=== PATIENT | female | born 1950 | race African-American/Black ===

== ENCOUNTER 2017-07-27 13:28 | Inpatient (IN) ==
[2017-07-27 15:10] LABS: Basophils % 0.3 % (0.0-0.8); Eosinophils # 0.1 10*3/uL (0.0-0.87); Eosinophils % 1.4 % (0.00-10.9); Hematocrit 33.1 VOL% (35.7-47.0); Hemoglobin 11.1 GM/DL (12.0-16.0); Immature Granulocytes % 0.5 %; Immature Granulocytes Absolute 0.03 #; Lymphocytes # 0.4 10*3/uL (1.4-4.0); Lymphocytes % 6.6 % (21.3-54.2); Mean Corpuscular HGB Conc 33.5 GM/DL (32-36); Mean Corpuscular Hemoglobin 30 PG (27-34); Mean Corpuscular Volume 89.7 FL (87-102); Mean Platelet Volume 11.9 FL (9.6-12.0); Monocytes # 0.6 10*3/uL (0.11-0.8); Monocytes % 8.9 % (1.7-12.7); Neutrophils # 5.4 10*3/uL (1.4-7.4); Neutrophils % 82.3 % (38.7-73.9); Platelet Count 92 T/CUMM (130-400); Red Blood Count 3.69 MC/CUMM (3.8-5.5); Red Cell Distribution Width 13.7 % (9.3-17.3); White Blood Count 6.5 T/CUMM (4-12)
[2017-07-27 15:26] LABS: Calcium 8.5 MG/DL (8.5-10.1); Osmolality,Calculated 267.4 MOS/KG (273-304); Potassium 4.2 MMOL/L (3.5-5.1)
[2017-07-27 15:57] LABS: Anisocytosis 1+; Band Neutrophils 1 % (0-10); Eosinophils 1 % (0-10); Hypochromasia 1+; Lymphocytes 4 % (20-55); Myelocytes 1 %; Platelet Estimate Decreased; Segmented Neutrophils 87 % (50-85); Total Cells Counted 100
[2017-07-27] MEDS ORDERED: ONDANSETRON 4 MG/2 ML VIAL IV PRN (17:09)
[2017-07-27] MEDS ORDERED: ACETAMINOPHEN 325 MG TABLET PO PRN (17:09)
[2017-07-27] MEDS ORDERED: guaiFENesin/DM ER 600-30 MG TABLET PO PRN (17:09)
[2017-07-27] MEDS ORDERED: ZALEPLON 5 MG CAPSULE PO PRN (17:09)
[2017-07-27] MEDS ORDERED: GENTAMICIN INJ 100 ML IV ONE (18:00)
[2017-07-27] MEDS ORDERED: GENTAMICIN INJ 100 ML IV PRN (18:00)
[2017-07-27] MEDS ORDERED: VANCOMYCIN INJ 1,250 MG in SODIUM CHLORIDE 0.45% 250 ML IV ONE (18:00)
[2017-07-27] MEDS ORDERED: VANCOMYCIN INJ 1,250 MG in SODIUM CHLORIDE 0.45% 250 ML IV PRN (18:00)
[2017-07-27] MEDS: ENOXAPARIN 30 MG/0.3 ML SYRINGE SUBCUT SCH (18:35)
[2017-07-27] MEDS ORDERED: OSELTAMIVIR 75 MG CAPSULE PO SCH (21:00)
[2017-07-28 06:26] LABS: Basophils % 0.2 % (0.0-0.8); Eosinophils # 0.2 10*3/uL (0.0-0.87); Eosinophils % 4.4 % (0.00-10.9); Hematocrit 29.4 VOL% (35.7-47.0); Hemoglobin 9.8 GM/DL (12.0-16.0); Immature Granulocytes % 0.4 %; Immature Granulocytes Absolute 0.02 #; Lymphocytes # 0.6 10*3/uL (1.4-4.0); Lymphocytes % 10.4 % (21.3-54.2); Mean Corpuscular HGB Conc 33.3 GM/DL (32-36); Mean Corpuscular Hemoglobin 30 PG (27-34); Mean Corpuscular Volume 90.2 FL (87-102); Mean Platelet Volume 12.2 FL (9.6-12.0); Monocytes # 0.7 10*3/uL (0.11-0.8); Monocytes % 13.1 % (1.7-12.7); Neutrophils # 3.8 10*3/uL (1.4-7.4); Neutrophils % 71.5 % (38.7-73.9); Red Blood Count 3.26 MC/CUMM (3.8-5.5); Red Cell Distribution Width 13.8 % (9.3-17.3); White Blood Count 5.3 T/CUMM (4-12)
[2017-07-28 06:29] LABS: Platelet Count 90 T/CUMM (130-400)
[2017-07-28 06:57] LABS: Calcium 7.7 MG/DL (8.5-10.1); Potassium 3.9 MMOL/L (3.5-5.1)
[2017-07-28] MEDS: PANTOPRAZOLE 40 MG TABLET PO SCH (09:02)
[2017-07-28] MEDS: ENOXAPARIN 30 MG/0.3 ML SYRINGE SUBCUT SCH (17:57)
[2017-07-29] MEDS: PANTOPRAZOLE 40 MG TABLET PO SCH (08:37)
[2017-07-29 09:02] VITALS: BP 159/79
== END 2017-07-29 11:55 | disposition home or self-care (01) | DRG 871 ==
LOC: N.ED 13:28 → N.EDINP 15:17 → N.5E 17:09
PROVIDERS: ADMIT Internal Medicine; ATTEND Internal Medicine

== ENCOUNTER 2017-10-03 22:46 | Inpatient (IN) ==
[2017-10-03] MEDS ORDERED: ACETAMINOPHEN 500 MG TABLET ONE (23:15)
[2017-10-03] MEDS ORDERED: ACETAMINOPHEN 500 MG TABLET PO STA (23:19)
[2017-10-03] MEDS ORDERED: SODIUM CHLORIDE 0.9% 500 ML IV STA (23:32)
[2017-10-03] MEDS ORDERED: IBUPROFEN 800 MG TABLET PO STA (23:32)
[2017-10-04 00:46] LABS: Basophils # 0.1 10*3/uL (0.0-0.2); Basophils % 0.3 % (0.0-0.8); Eosinophils # 0.1 10*3/uL (0.0-0.87); Eosinophils % 0.6 % (0.00-10.9); Hematocrit 26.9 VOL% (35.7-47.0); Hemoglobin 8.5 GM/DL (12.0-16.0); Immature Granulocytes % 2.7 %; Immature Granulocytes Absolute 0.38 #; Lymphocytes # 0.7 10*3/uL (1.4-4.0); Mean Corpuscular HGB Conc 31.6 GM/DL (32-36); Mean Corpuscular Hemoglobin 28 PG (27-34); Mean Corpuscular Volume 87.1 FL (87-102); Mean Platelet Volume 12.5 FL (9.6-12.0); Monocytes # 0.9 10*3/uL (0.11-0.8); Neutrophils # 12.2 10*3/uL (1.4-7.4); Neutrophils % 85.4 % (38.7-73.9); Platelet Count 162 T/CUMM (130-400); Red Blood Count 3.09 MC/CUMM (3.8-5.5); Red Cell Distribution Width 15.1 % (9.3-17.3); White Blood Count 14.3 T/CUMM (4-12)
[2017-10-04 00:53] LABS: Calcium 9.5 MG/DL (8.5-10.1); Magnesium 1.9 MG/DL (1.8-2.4); Osmolality,Calculated 275.7 MOS/KG (273-304); Potassium 3.6 MMOL/L (3.5-5.1)
[2017-10-04] MEDS ORDERED: ACETAMINOPHEN 325 MG TABLET PO PRN (04:39)
[2017-10-04] MEDS ORDERED: MORPHINE 2 MG/1 ML SYRINGE IV PRN (04:39)
[2017-10-04] MEDS ORDERED: ALBUTEROL/IPRATROPIUM 3 ML NEB RESP TX PRN (04:39)
[2017-10-04] MEDS ORDERED: ONDANSETRON 4 MG/2 ML VIAL IV PRN (04:39)
[2017-10-04] MEDS ORDERED: LEVOFLOXACIN INJ 750 MG in PREMIX 1 EACH IV ONE (05:30)
[2017-10-04] MEDS: ALBUTEROL/IPRATROPIUM 3 ML NEB RESP TX SCH ×3 (06:59→20:22)
[2017-10-04] MEDS: DOCUSATE SODIUM 100 MG CAPSULE PO SCH ×2 (09:15→20:39)
[2017-10-04] MEDS: PANTOPRAZOLE 40 MG TABLET PO SCH (09:16)
[2017-10-04] MEDS: ENOXAPARIN 30 MG/0.3 ML SYRINGE SUBCUT SCH (09:16)
[2017-10-04] MEDS: cloNIDine 0.1 MG TABLET PO SCH ×2 (14:10→20:39)
[2017-10-05] MEDS: ALBUTEROL/IPRATROPIUM 3 ML NEB RESP TX SCH ×4 (01:12→19:47)
[2017-10-05 06:52] LABS: Basophils % 0.2 % (0.0-0.8); Eosinophils # 0.2 10*3/uL (0.0-0.87); Eosinophils % 2.1 % (0.00-10.9); Hematocrit 23.9 VOL% (35.7-47.0); Hemoglobin 7.4 GM/DL (12.0-16.0); Immature Granulocytes % 2.8 %; Immature Granulocytes Absolute 0.28 #; Lymphocytes # 0.8 10*3/uL (1.4-4.0); Lymphocytes % 8.3 % (21.3-54.2); Mean Corpuscular Hemoglobin 27 PG (27-34); Mean Corpuscular Volume 87.5 FL (87-102); Mean Platelet Volume 12.4 FL (9.6-12.0); Monocytes % 10.3 % (1.7-12.7); Neutrophils # 7.6 10*3/uL (1.4-7.4); Neutrophils % 76.3 % (38.7-73.9); Platelet Count 132 T/CUMM (130-400); Red Blood Count 2.73 MC/CUMM (3.8-5.5); Red Cell Distribution Width 15.2 % (9.3-17.3)
[2017-10-05 07:24] LABS: Albumin 2.3 G/DL (3.4-5.0); Bilirubin,Total 0.7 MG/DL (0.2-1.0); Calcium 8.1 MG/DL (8.5-10.1); Osmolality,Calculated 275.8 MOS/KG (273-304); Total Protein 5.7 G/DL (6.4-8.3)
[2017-10-05] MEDS: cloNIDine 0.1 MG TABLET PO SCH ×3 (08:36→21:55)
[2017-10-05] MEDS: DOCUSATE SODIUM 100 MG CAPSULE PO SCH ×2 (08:38→21:55)
[2017-10-05] MEDS: ENOXAPARIN 30 MG/0.3 ML SYRINGE SUBCUT SCH (08:38)
[2017-10-05] MEDS: PANTOPRAZOLE 40 MG TABLET PO SCH (08:38)
[2017-10-05] MEDS ORDERED: EPOETIN ALFA 10,000 UNIT/1 ML VIAL SUBCUT SCH (09:00)
[2017-10-06] MEDS: ALBUTEROL/IPRATROPIUM 3 ML NEB RESP TX SCH ×4 (00:21→20:15)
[2017-10-06] MEDS ORDERED: LEVOFLOXACIN INJ 500 MG in PREMIX 1 EACH IV SCH (05:30)
[2017-10-06] MEDS: ENOXAPARIN 30 MG/0.3 ML SYRINGE SUBCUT SCH (08:34)
[2017-10-06] MEDS: DOCUSATE SODIUM 100 MG CAPSULE PO SCH ×3 (08:34→21:29)
[2017-10-06] MEDS: PANTOPRAZOLE 40 MG TABLET PO SCH (08:34)
[2017-10-06] MEDS: cloNIDine 0.1 MG TABLET PO SCH ×4 (08:34→21:29)
[2017-10-06] MEDS ORDERED: SODIUM CHLORIDE 0.9% 1,000 ML IV PRN (12:59)
[2017-10-06] MEDS: CALCIUM ACETATE 667 MG CAPSULE PO SCH (16:07)
[2017-10-07] MEDS: ALBUTEROL/IPRATROPIUM 3 ML NEB RESP TX SCH ×2 (00:20→07:30)
[2017-10-07] MEDS: PANTOPRAZOLE 40 MG TABLET PO SCH (08:36)
[2017-10-07] MEDS: DOCUSATE SODIUM 100 MG CAPSULE PO SCH (08:36)
[2017-10-07] MEDS: cloNIDine 0.1 MG TABLET PO SCH (08:36)
[2017-10-07] MEDS: CALCIUM ACETATE 667 MG CAPSULE PO SCH ×2 (08:36→12:44)
[2017-10-07] MEDS: ENOXAPARIN 30 MG/0.3 ML SYRINGE SUBCUT SCH (08:36)
[2017-10-07 10:42] LABS: Hemoglobin 9.7 GM/DL (12.0-16.0)
[2017-10-07 12:01] VITALS: BP 161/95
== END 2017-10-07 13:51 | disposition home or self-care (01) | DRG 871 ==
LOC: N.ED 22:46 → N.EDINP 10-04 02:46 → N.5E 10-04 04:06
PROVIDERS: ADMIT Pediatrics; ATTEND Pediatrics

== ENCOUNTER 2017-10-26 15:11 | Inpatient (IN) ==
[2017-10-26] MEDS ORDERED: VANCOMYCIN INJ 1,000 MG in SODIUM CHLORIDE 0.9% 250 ML IV STA (15:36)
[2017-10-26] MEDS ORDERED: ACETAMINOPHEN 500 MG TABLET PO STA (15:36)
[2017-10-26] MEDS ORDERED: ACETAMINOPHEN 500 MG TABLET ONE (17:37)
[2017-10-26] MEDS ORDERED: VANCOMYCIN 1,000 MG VIAL ONE (17:37)
[2017-10-26 17:52] LABS: Basophils % 0.3 % (0.0-0.8); Eosinophils # 0.1 10*3/uL (0.0-0.87); Eosinophils % 0.5 % (0.00-10.9); Hematocrit 25.7 VOL% (35.7-47.0); Hemoglobin 8.1 GM/DL (12.0-16.0); Immature Granulocytes % 2.8 %; Immature Granulocytes Absolute 0.37 #; Lymphocytes # 0.6 10*3/uL (1.4-4.0); Lymphocytes % 4.9 % (21.3-54.2); Mean Corpuscular HGB Conc 31.5 GM/DL (32-36); Mean Corpuscular Hemoglobin 27 PG (27-34); Mean Corpuscular Volume 86.5 FL (87-102); Mean Platelet Volume 11.9 FL (9.6-12.0); Monocytes # 1.2 10*3/uL (0.11-0.8); Monocytes % 8.8 % (1.7-12.7); Neutrophils # 10.9 10*3/uL (1.4-7.4); Neutrophils % 82.7 % (38.7-73.9); Platelet Count 150 T/CUMM (130-400); Red Blood Count 2.97 MC/CUMM (3.8-5.5); Red Cell Distribution Width 17.5 % (9.3-17.3); White Blood Count 13.1 T/CUMM (4-12)
[2017-10-26 18:00] LABS: INR 1.1; PT Patient Result 11.1 SECS
[2017-10-26 18:14] LABS: Lactic Acid 0.7 MMOL/L (0.4-2.0)
[2017-10-26 18:15] LABS: Alanine Aminotransferase 28 U/L (13-56); Albumin 2.6 G/DL (3.4-5.0); Alkaline Phosphatase 69 U/L (45-117); Aspartate Amino Transferase 31 U/L (0-37); Blood Urea Nitrogen 14 MG/DL (7-18); Calcium 9.1 MG/DL (8.5-10.1); Glucose 93 MG/DL (74-106); Osmolality,Calculated 273.8 MOS/KG (273-304); Potassium 3.9 MMOL/L (3.5-5.1); Sodium 137 MMOL/L (136-145); Total Protein 6.9 G/DL (6.4-8.3)
[2017-10-26] MEDS ORDERED: CALCIUM ACETATE 667 MG CAPSULE PO SCH ×2 (20:24→21:00)
[2017-10-26] MEDS ORDERED: VANCOMYCIN INJ 500 MG in SODIUM CHLORIDE 0.9% 250 ML IV PRN (21:00)
[2017-10-26 22:11] LABS: Band Neutrophils 2 % (0-10); Lymphocytes 4 % (20-55); Platelet Estimate Normal; Segmented Neutrophils 90 % (50-85); Total Cells Counted 100
[2017-10-26] MEDS: PIPERACILLIN/TAZOBACTAM 3.375 MG in SODIUM CHLORIDE 0.9% 100 ML IV SCH (22:24)
[2017-10-26] MEDS: cloNIDine 0.1 MG TABLET PO SCH (22:27)
[2017-10-27 00:11] LABS: Troponin I Only 0.123 NG/ML (0.00-0.045)
[2017-10-27 04:08] LABS: Basophils % 0.2 % (0.0-0.8); Eosinophils # 0.2 10*3/uL (0.0-0.87); Eosinophils % 1.6 % (0.00-10.9); Hematocrit 22.7 VOL% (35.7-47.0); Hemoglobin 7.2 GM/DL (12.0-16.0); Immature Granulocytes % 3.7 %; Immature Granulocytes Absolute 0.39 #; Lymphocytes # 0.7 10*3/uL (1.4-4.0); Lymphocytes % 6.7 % (21.3-54.2); Mean Corpuscular HGB Conc 31.7 GM/DL (32-36); Mean Corpuscular Hemoglobin 27 PG (27-34); Mean Corpuscular Volume 84.7 FL (87-102); Mean Platelet Volume 12.4 FL (9.6-12.0); Monocytes # 1.1 10*3/uL (0.11-0.8); Monocytes % 10.1 % (1.7-12.7); Neutrophils # 8.2 10*3/uL (1.4-7.4); Neutrophils % 77.7 % (38.7-73.9); Platelet Count 137 T/CUMM (130-400); Red Blood Count 2.68 MC/CUMM (3.8-5.5); Red Cell Distribution Width 17.4 % (9.3-17.3); White Blood Count 10.5 T/CUMM (4-12)
[2017-10-27 04:32] LABS: Calcium 8.1 MG/DL (8.5-10.1); Osmolality,Calculated 280.4 MOS/KG (273-304); Potassium 3.9 MMOL/L (3.5-5.1)
[2017-10-27 04:41] LABS: Troponin I Only 0.118 NG/ML (0.00-0.045)
[2017-10-27 04:44] LABS: Risk Ratio 6.19; Thyroid Stimulating Hormone 0.379 uIU/ml (0.358-3.74); VLDL CHOLESTEROL 24.6 MG/DL
[2017-10-27] MEDS ORDERED: SODIUM CHLORIDE 0.9% 1,000 ML IV PRN (09:23)
[2017-10-27] MEDS: CALCIUM ACETATE 667 MG CAPSULE PO SCH ×2 (09:50→17:13)
[2017-10-27] MEDS: cloNIDine 0.1 MG TABLET PO SCH ×3 (09:51→22:56)
[2017-10-27] MEDS: ASPIRIN 325 MG TABLET PO SCH (09:51)
[2017-10-27] MEDS: PIPERACILLIN/TAZOBACTAM 3.375 MG in SODIUM CHLORIDE 0.9% 100 ML IV SCH ×2 (10:00→22:55)
[2017-10-27] MEDS ORDERED: VANCOMYCIN INJ 500 MG in SODIUM CHLORIDE 0.9% 100 ML IV ONE (15:00)
[2017-10-27 19:20] LABS: Hematocrit 29.1 VOL% (35.7-47.0); Hemoglobin 9.4 GM/DL (12.0-16.0)
[2017-10-27] MEDS: ONDANSETRON 4 MG/2 ML VIAL IV PRN (23:03)
[2017-10-27] MEDS ORDERED: MAGNESIUM HYDROXIDE SUSP 30 ML UDCUP PO ONE (23:30)
[2017-10-27] MEDS: guaiFENesin 200 MG/10 ML UDCUP PO PRN (23:37)
[2017-10-28] MEDS: guaiFENesin 200 MG/10 ML UDCUP PO PRN ×2 (09:06→20:54)
[2017-10-28] MEDS: ASPIRIN 325 MG TABLET PO SCH (09:07)
[2017-10-28] MEDS: cloNIDine 0.1 MG TABLET PO SCH ×3 (09:07→20:55)
[2017-10-28] MEDS: CALCIUM ACETATE 667 MG CAPSULE PO SCH ×2 (09:07→16:40)
[2017-10-28] MEDS: POLYETHYLENE GLYCOL POWDER 17 GM PACK PO SCH (09:08)
[2017-10-28] MEDS: PIPERACILLIN/TAZOBACTAM 3.375 MG in SODIUM CHLORIDE 0.9% 100 ML IV SCH ×2 (09:08→20:55)
[2017-10-29 07:55] LABS: Basophils % 0.3 % (0.0-0.8); Eosinophils # 0.3 10*3/uL (0.0-0.87); Eosinophils % 2.5 % (0.00-10.9); Hematocrit 31.1 VOL% (35.7-47.0); Hemoglobin 9.7 GM/DL (12.0-16.0); Immature Granulocytes % 1.5 %; Immature Granulocytes Absolute 0.19 #; Lymphocytes % 7.9 % (21.3-54.2); Mean Corpuscular HGB Conc 31.2 GM/DL (32-36); Mean Corpuscular Hemoglobin 27 PG (27-34); Mean Corpuscular Volume 86.6 FL (87-102); Mean Platelet Volume 12.9 FL (9.6-12.0); Monocytes # 0.7 10*3/uL (0.11-0.8); Neutrophils # 10.1 10*3/uL (1.4-7.4); Neutrophils % 81.8 % (38.7-73.9); Platelet Count 144 T/CUMM (130-400); Red Blood Count 3.59 MC/CUMM (3.8-5.5); Red Cell Distribution Width 17.4 % (9.3-17.3); White Blood Count 12.4 T/CUMM (4-12)
[2017-10-29 08:11] LABS: Calcium 7.6 MG/DL (8.5-10.1); Osmolality,Calculated 280.5 MOS/KG (273-304); Potassium 4.4 MMOL/L (3.5-5.1)
[2017-10-29] MEDS: CALCIUM ACETATE 667 MG CAPSULE PO SCH ×2 (09:20→17:45)
[2017-10-29] MEDS: cloNIDine 0.1 MG TABLET PO SCH ×3 (09:20→21:16)
[2017-10-29] MEDS: ASPIRIN 325 MG TABLET PO SCH (09:20)
[2017-10-29] MEDS: POLYETHYLENE GLYCOL POWDER 17 GM PACK PO SCH (09:21)
[2017-10-29] MEDS: PIPERACILLIN/TAZOBACTAM 3.375 MG in SODIUM CHLORIDE 0.9% 100 ML IV SCH ×2 (09:21→21:15)
[2017-10-29] MEDS ORDERED: CHLORHEXIDINE 4% SOLN 118 ML BOTTLE TOP ONE (10:09)
[2017-10-29] MEDS: MUPIROCIN 2% OINT 22 GM TUBE TOP SCH ×2 (14:02→21:12)
[2017-10-29] MEDS ORDERED: VANCOMYCIN INJ 500 MG in SODIUM CHLORIDE 0.9% 100 ML IV ONE (18:00)
[2017-10-29] MEDS: ACETAMINOPHEN 325 MG TABLET PO PRN (21:11)
[2017-10-29] MEDS: guaiFENesin 200 MG/10 ML UDCUP PO PRN (21:16)
[2017-10-30] MEDS: POLYETHYLENE GLYCOL POWDER 17 GM PACK PO SCH (09:40)
[2017-10-30] MEDS: ASPIRIN 325 MG TABLET PO SCH (09:40)
[2017-10-30] MEDS: MUPIROCIN 2% OINT 22 GM TUBE TOP SCH ×3 (09:40→21:31)
[2017-10-30] MEDS: cloNIDine 0.1 MG TABLET PO SCH ×3 (09:40→21:31)
[2017-10-30] MEDS: CALCIUM ACETATE 667 MG CAPSULE PO SCH ×2 (09:40→16:25)
[2017-10-30] MEDS: PIPERACILLIN/TAZOBACTAM 3.375 MG in SODIUM CHLORIDE 0.9% 100 ML IV SCH ×2 (09:42→21:31)
[2017-10-30] MEDS: ACETAMINOPHEN 325 MG TABLET PO PRN (21:23)
[2017-10-30] MEDS: guaiFENesin 200 MG/10 ML UDCUP PO PRN (21:24)
[2017-10-31] MEDS: PIPERACILLIN/TAZOBACTAM 3.375 MG in SODIUM CHLORIDE 0.9% 100 ML IV SCH ×2 (08:06→21:52)
[2017-10-31] MEDS: cloNIDine 0.1 MG TABLET PO SCH ×3 (08:07→21:52)
[2017-10-31] MEDS: CALCIUM ACETATE 667 MG CAPSULE PO SCH ×2 (08:07→16:46)
[2017-10-31] MEDS: ASPIRIN 325 MG TABLET PO SCH (08:08)
[2017-10-31] MEDS: MUPIROCIN 2% OINT 22 GM TUBE TOP SCH ×3 (08:08→21:53)
[2017-10-31] MEDS: POLYETHYLENE GLYCOL POWDER 17 GM PACK PO SCH (09:02)
[2017-10-31] MEDS ORDERED: VANCOMYCIN INJ 600 MG in SODIUM CHLORIDE 0.9% 250 ML IV PRN (11:00)
[2017-10-31 15:51] LABS: Hepatitis B Core Ab Result Negative (Negative)
[2017-10-31] MEDS ORDERED: VANCOMYCIN INJ 600 MG in SODIUM CHLORIDE 0.9% 250 ML IV ONE (18:00)
[2017-10-31] MEDS: guaiFENesin 200 MG/10 ML UDCUP PO PRN (21:52)
[2017-11-01] MEDS: CALCIUM ACETATE 667 MG CAPSULE PO SCH ×2 (09:13→18:06)
[2017-11-01] MEDS: ASPIRIN 325 MG TABLET PO SCH (09:13)
[2017-11-01] MEDS: cloNIDine 0.1 MG TABLET PO SCH ×3 (09:14→20:29)
[2017-11-01] MEDS: POLYETHYLENE GLYCOL POWDER 17 GM PACK PO SCH (09:14)
[2017-11-01] MEDS: MUPIROCIN 2% OINT 22 GM TUBE TOP SCH ×3 (09:14→20:28)
[2017-11-01] MEDS: PIPERACILLIN/TAZOBACTAM 3,375 MG in SODIUM CHLORIDE 0.9% 100 ML IV SCH ×2 (09:15→20:27)
[2017-11-01] MEDS: PIPERACILLIN/TAZOBACTAM 3.375 MG in SODIUM CHLORIDE 0.9% 100 ML IV SCH (09:16)
[2017-11-01] MEDS: guaiFENesin 200 MG/10 ML UDCUP PO PRN (20:27)
[2017-11-02] MEDS: ACETAMINOPHEN 325 MG TABLET PO PRN ×2 (04:11→20:33)
[2017-11-02] MEDS: POLYETHYLENE GLYCOL POWDER 17 GM PACK PO SCH (08:08)
[2017-11-02] MEDS: CALCIUM ACETATE 667 MG CAPSULE PO SCH ×2 (08:08→16:59)
[2017-11-02] MEDS: PIPERACILLIN/TAZOBACTAM 3,375 MG in SODIUM CHLORIDE 0.9% 100 ML IV SCH ×2 (08:09→20:34)
[2017-11-02] MEDS: ASPIRIN 325 MG TABLET PO SCH (08:09)
[2017-11-02] MEDS: cloNIDine 0.1 MG TABLET PO SCH ×3 (08:09→20:33)
[2017-11-02] MEDS: MUPIROCIN 2% OINT 22 GM TUBE TOP SCH ×3 (08:10→20:34)
[2017-11-02] MEDS ORDERED: SODIUM CHLORIDE 0.9% 1,000 ML IV SCH (11:30)
[2017-11-02] MEDS ORDERED: MIDAZOLAM 10 MG/2 ML VIAL ONE (12:49)
[2017-11-02] MEDS ORDERED: MEPERIDINE 25 MG/1 ML VIAL ONE ×2 (12:50→13:49)
[2017-11-02] MEDS ORDERED: MIDAZOLAM 2 MG/2 ML VIAL ONE (14:15)
[2017-11-02] MEDS ORDERED: VANCOMYCIN INJ 600 MG in SODIUM CHLORIDE 0.9% 250 ML IV ONE (18:00)
[2017-11-02 19:10] LABS: Hepatitis A Ab IgM Quant 0.24 Index; Hepatitis A Ab IgM Result Negative (Negative); Hepatitis B Core IgM Quant 0.16 Index; Hepatitis B Core IgM Result Negative (Negative); Hepatitis B Surface Ag Quant < 0.10 Index; Hepatitis B Surface Ag Result Negative (Negative); Hepatitis C Virus Ab Quant 0.08 Index; Hepatitis C Virus Ab Result Negative (Negative)
[2017-11-03] MEDS: guaiFENesin 200 MG/10 ML UDCUP PO PRN ×2 (06:19→19:59)
[2017-11-03] MEDS: LOPERAMIDE 2 MG CAPSULE PO PRN (08:21)
[2017-11-03] MEDS: PIPERACILLIN/TAZOBACTAM 3,375 MG in SODIUM CHLORIDE 0.9% 100 ML IV SCH (08:21)
[2017-11-03] MEDS: cloNIDine 0.1 MG TABLET PO SCH ×3 (08:21→20:00)
[2017-11-03] MEDS: CALCIUM ACETATE 667 MG CAPSULE PO SCH ×2 (08:21→17:06)
[2017-11-03] MEDS: ASPIRIN 325 MG TABLET PO SCH (08:21)
[2017-11-03] MEDS: MUPIROCIN 2% OINT 22 GM TUBE TOP SCH ×3 (08:24→20:00)
[2017-11-03] MEDS: POLYETHYLENE GLYCOL POWDER 17 GM PACK PO SCH (08:24)
[2017-11-03 09:50] LABS: Basophils % 0.2 % (0.0-0.8); Eosinophils # 0.3 10*3/uL (0.0-0.87); Hematocrit 29.4 VOL% (35.7-47.0); Hemoglobin 9.1 GM/DL (12.0-16.0); Immature Granulocytes % 0.8 %; Immature Granulocytes Absolute 0.11 #; Lymphocytes # 0.7 10*3/uL (1.4-4.0); Mean Corpuscular Hemoglobin 27 PG (27-34); Monocytes # 0.7 10*3/uL (0.11-0.8); Monocytes % 5.1 % (1.7-12.7); Neutrophils # 11.4 10*3/uL (1.4-7.4); Neutrophils % 86.9 % (38.7-73.9); Platelet Count 156 T/CUMM (130-400); Red Blood Count 3.34 MC/CUMM (3.8-5.5); Red Cell Distribution Width 17.4 % (9.3-17.3); White Blood Count 13.1 T/CUMM (4-12)
[2017-11-03 10:28] LABS: Osmolality,Calculated 293.1 MOS/KG (273-304); Potassium 4.7 MMOL/L (3.5-5.1)
[2017-11-03] MEDS: ACETAMINOPHEN 325 MG TABLET PO PRN (19:57)
[2017-11-04 07:03] LABS: Basophils # 0.1 10*3/uL (0.0-0.2); Basophils % 0.6 % (0.0-0.8); Eosinophils # 0.2 10*3/uL (0.0-0.87); Eosinophils % 2.7 % (0.00-10.9); Hematocrit 28.9 VOL% (35.7-47.0); Hemoglobin 9.2 GM/DL (12.0-16.0); Immature Granulocytes % 0.7 %; Immature Granulocytes Absolute 0.06 #; Lymphocytes # 0.7 10*3/uL (1.4-4.0); Lymphocytes % 8.1 % (21.3-54.2); Mean Corpuscular HGB Conc 31.8 GM/DL (32-36); Mean Corpuscular Hemoglobin 27 PG (27-34); Monocytes # 0.8 10*3/uL (0.11-0.8); Monocytes % 9.1 % (1.7-12.7); Neutrophils # 7.1 10*3/uL (1.4-7.4); Neutrophils % 78.8 % (38.7-73.9); Platelet Count 146 T/CUMM (130-400); Red Cell Distribution Width 17.6 % (9.3-17.3); White Blood Count 8.9 T/CUMM (4-12)
[2017-11-04 07:28] LABS: Calcium 7.6 MG/DL (8.5-10.1); Osmolality,Calculated 279.4 MOS/KG (273-304); Potassium 4.6 MMOL/L (3.5-5.1)
[2017-11-04] MEDS: cloNIDine 0.1 MG TABLET PO SCH ×3 (09:09→22:38)
[2017-11-04] MEDS: ASPIRIN 325 MG TABLET PO SCH (09:09)
[2017-11-04] MEDS: LOPERAMIDE 2 MG CAPSULE PO PRN (09:09)
[2017-11-04] MEDS: POLYETHYLENE GLYCOL POWDER 17 GM PACK PO SCH (09:10)
[2017-11-04] MEDS: MUPIROCIN 2% OINT 22 GM TUBE TOP SCH ×3 (09:10→22:40)
[2017-11-04] MEDS: CALCIUM ACETATE 667 MG CAPSULE PO SCH ×2 (09:10→16:09)
[2017-11-04] MEDS ORDERED: MAGNESIUM SULF RIDER 2 GM in PREMIX 1 EACH IV PRN (12:02)
[2017-11-04] MEDS ORDERED: diphenhydrAMINE CAP 25 MG CAPSULE PO ONE (12:02)
[2017-11-04] MEDS ORDERED: DIAZEPAM 5 MG TABLET PO ONE (12:02)
[2017-11-04] MEDS ORDERED: POTASSIUM CHLORIDE RIDER 10 MEQ in PREMIX 1 EACH IV PRN (12:02)
[2017-11-04] MEDS: ACETAMINOPHEN 325 MG TABLET PO PRN (22:38)
[2017-11-04] MEDS: guaiFENesin 200 MG/10 ML UDCUP PO PRN (22:39)
[2017-11-05] MEDS ORDERED: diphenhydrAMINE CAP 25 MG CAPSULE PO ONE (06:00)
[2017-11-05] MEDS ORDERED: DIAZEPAM 5 MG TABLET PO ONE (06:00)
[2017-11-05 06:48] LABS: Basophils % 0.6 % (0.0-0.8); Eosinophils # 0.3 10*3/uL (0.0-0.87); Eosinophils % 3.5 % (0.00-10.9); Hematocrit 30.9 VOL% (35.7-47.0); Hemoglobin 9.7 GM/DL (12.0-16.0); Immature Granulocytes % 0.6 %; Immature Granulocytes Absolute 0.04 #; Lymphocytes # 1.3 10*3/uL (1.4-4.0); Lymphocytes % 18.6 % (21.3-54.2); Mean Corpuscular HGB Conc 31.4 GM/DL (32-36); Mean Corpuscular Hemoglobin 27 PG (27-34); Mean Corpuscular Volume 85.8 FL (87-102); Mean Platelet Volume 12.3 FL (9.6-12.0); Monocytes # 0.8 10*3/uL (0.11-0.8); Monocytes % 10.9 % (1.7-12.7); Neutrophils # 4.7 10*3/uL (1.4-7.4); Neutrophils % 65.8 % (38.7-73.9); Platelet Count 157 T/CUMM (130-400); Red Cell Distribution Width 17.4 % (9.3-17.3); White Blood Count 7.1 T/CUMM (4-12)
[2017-11-05] MEDS ORDERED: HEPARIN/NACL 0.9% 2 UNITS/ML 1,000 ML IV ONE ×2 (06:50→06:54)
[2017-11-05] MEDS ORDERED: LIDOCAINE 1% 20 ML VIAL ONE (06:54)
[2017-11-05] MEDS: ASPIRIN 325 MG TABLET PO SCH ×2 (07:00→08:13)
[2017-11-05 07:01] LABS: PT Patient Result 10.3 SECS
[2017-11-05] MEDS ORDERED: MIDAZOLAM 2 MG/2 ML VIAL ONE (07:23)
[2017-11-05] MEDS ORDERED: HYDROmorphone 2 MG/1 ML VIAL ONE (07:24)
[2017-11-05 07:38] LABS: Osmolality,Calculated 285.3 MOS/KG (273-304); Potassium 4.6 MMOL/L (3.5-5.1)
[2017-11-05] MEDS: POLYETHYLENE GLYCOL POWDER 17 GM PACK PO SCH (08:13)
[2017-11-05] MEDS: CALCIUM ACETATE 667 MG CAPSULE PO SCH ×2 (08:54→17:35)
[2017-11-05] MEDS: cloNIDine 0.1 MG TABLET PO SCH ×3 (08:55→20:15)
[2017-11-05] MEDS: MUPIROCIN 2% OINT 22 GM TUBE TOP SCH ×3 (08:55→20:14)
[2017-11-06 06:07] LABS: Osmolality,Calculated 276.7 MOS/KG (273-304); Potassium 4.8 MMOL/L (3.5-5.1)
[2017-11-06] MEDS ORDERED: BUPIVACAINE 0.25% 50 ML VIAL ONE (12:37)
[2017-11-06] MEDS ORDERED: HEPARIN 5,000 UNIT/1 ML VIAL ONE (12:37)
[2017-11-06] MEDS ORDERED: THROMBIN TOPICAL (RECOMBINANT) 5,000 UNIT VIAL TOP ONE (12:37)
[2017-11-06] MEDS ORDERED: ceFAZolin 1,000 MG VIAL ONE (12:37)
[2017-11-06] MEDS ORDERED: PROPOFOL 200 MG/20 ML VIAL IV ONE (14:45)
[2017-11-06] MEDS ORDERED: fentaNYL 100 MCG/2 ML VIAL ONE (14:45)
[2017-11-06] MEDS ORDERED: SEVOFLURANE 1 UNIT/15 MINUTE INH ONE (14:45)
[2017-11-06] MEDS ORDERED: MIDAZOLAM 2 MG/2 ML VIAL ONE (14:45)
[2017-11-06] MEDS ORDERED: ETOMIDATE 40 MG/20 ML VIAL IV ONE (14:46)
[2017-11-06] MEDS ORDERED: DEXAMETHASONE 10 MG/1 ML VIAL ONE (14:46)
[2017-11-06] MEDS ORDERED: ONDANSETRON 4 MG/2 ML VIAL ONE (14:46)
[2017-11-06] MEDS ORDERED: HYDROmorphone 2 MG/1 ML VIAL IV PRN (15:00)
[2017-11-06] MEDS: cloNIDine 0.1 MG TABLET PO SCH ×3 (15:28→21:05)
[2017-11-06] MEDS: MUPIROCIN 2% OINT 22 GM TUBE TOP SCH ×3 (15:28→21:04)
[2017-11-06] MEDS: ACETAMINOPHEN 325 MG TABLET PO PRN (15:28)
[2017-11-06] MEDS: ASPIRIN 325 MG TABLET PO SCH (15:29)
[2017-11-06] MEDS: POLYETHYLENE GLYCOL POWDER 17 GM PACK PO SCH (15:29)
[2017-11-06] MEDS: CALCIUM ACETATE 667 MG CAPSULE PO SCH ×2 (15:29→16:40)
[2017-11-07 05:31] LABS: Basophils % 0.2 % (0.0-0.8); Hematocrit 27.6 VOL% (35.7-47.0); Hemoglobin 8.6 GM/DL (12.0-16.0); Immature Granulocytes % 0.6 %; Immature Granulocytes Absolute 0.07 #; Lymphocytes # 0.6 10*3/uL (1.4-4.0); Lymphocytes % 5.7 % (21.3-54.2); Mean Corpuscular HGB Conc 31.2 GM/DL (32-36); Mean Corpuscular Hemoglobin 27 PG (27-34); Mean Corpuscular Volume 87.1 FL (87-102); Mean Platelet Volume 12.2 FL (9.6-12.0); Monocytes # 0.6 10*3/uL (0.11-0.8); Monocytes % 5.5 % (1.7-12.7); Neutrophils # 9.8 10*3/uL (1.4-7.4); Platelet Count 190 T/CUMM (130-400); Red Blood Count 3.17 MC/CUMM (3.8-5.5); Red Cell Distribution Width 16.9 % (9.3-17.3); White Blood Count 11.2 T/CUMM (4-12)
[2017-11-07] MEDS: CALCIUM ACETATE 667 MG CAPSULE PO SCH ×2 (10:03→16:15)
[2017-11-07] MEDS: cloNIDine 0.1 MG TABLET PO SCH ×2 (10:03→16:15)
[2017-11-07] MEDS: POLYETHYLENE GLYCOL POWDER 17 GM PACK PO SCH (10:04)
[2017-11-07] MEDS: ASPIRIN 325 MG TABLET PO SCH (10:04)
[2017-11-07] MEDS: MUPIROCIN 2% OINT 22 GM TUBE TOP SCH ×3 (10:04→22:55)
[2017-11-08 07:20] LABS: Basophils # 0.1 10*3/uL (0.0-0.2); Basophils % 0.5 % (0.0-0.8); Eosinophils # 0.3 10*3/uL (0.0-0.87); Eosinophils % 2.8 % (0.00-10.9); Hematocrit 26.8 VOL% (35.7-47.0); Hemoglobin 8.4 GM/DL (12.0-16.0); Immature Granulocytes % 0.7 %; Immature Granulocytes Absolute 0.08 #; Lymphocytes # 1.6 10*3/uL (1.4-4.0); Lymphocytes % 15.2 % (21.3-54.2); Mean Corpuscular HGB Conc 31.3 GM/DL (32-36); Mean Corpuscular Hemoglobin 27 PG (27-34); Mean Corpuscular Volume 85.9 FL (87-102); Mean Platelet Volume 11.7 FL (9.6-12.0); Monocytes # 0.6 10*3/uL (0.11-0.8); Monocytes % 5.5 % (1.7-12.7); Neutrophils # 8.1 10*3/uL (1.4-7.4); Neutrophils % 75.3 % (38.7-73.9); Platelet Count 190 T/CUMM (130-400); Red Blood Count 3.12 MC/CUMM (3.8-5.5); Red Cell Distribution Width 17.2 % (9.3-17.3); White Blood Count 10.7 T/CUMM (4-12)
[2017-11-08 07:39] LABS: Calcium 8.4 MG/DL (8.5-10.1); Osmolality,Calculated 291.5 MOS/KG (273-304); Potassium 5.6 MMOL/L (3.5-5.1)
[2017-11-08] MEDS: ASPIRIN 325 MG TABLET PO SCH (08:24)
[2017-11-08] MEDS: CALCIUM ACETATE 667 MG CAPSULE PO SCH ×2 (08:24→17:36)
[2017-11-08] MEDS: POLYETHYLENE GLYCOL POWDER 17 GM PACK PO SCH (08:25)
[2017-11-08] MEDS: MUPIROCIN 2% OINT 22 GM TUBE TOP SCH ×3 (08:25→20:35)
[2017-11-08] MEDS ORDERED: SODIUM POLYSTYRENE SULFATE 15 GM/60 ML BOTTLE PO ONE ×2 (08:55→15:00)
[2017-11-09] MEDS ORDERED: HEPARIN 5,000 UNIT/1 ML VIAL ONE (06:28)
[2017-11-09 07:05] LABS: Basophils # 0.1 10*3/uL (0.0-0.2); Basophils % 0.4 % (0.0-0.8); Eosinophils # 0.5 10*3/uL (0.0-0.87); Eosinophils % 4.4 % (0.00-10.9); Hemoglobin 9.3 GM/DL (12.0-16.0); Immature Granulocytes % 0.6 %; Immature Granulocytes Absolute 0.07 #; Lymphocytes # 1.9 10*3/uL (1.4-4.0); Lymphocytes % 17.1 % (21.3-54.2); Mean Corpuscular HGB Conc 32.1 GM/DL (32-36); Mean Corpuscular Hemoglobin 27 PG (27-34); Mean Corpuscular Volume 85.5 FL (87-102); Mean Platelet Volume 11.5 FL (9.6-12.0); Monocytes # 0.7 10*3/uL (0.11-0.8); Monocytes % 6.5 % (1.7-12.7); Neutrophils # 7.9 10*3/uL (1.4-7.4); Platelet Count 244 T/CUMM (130-400); Red Blood Count 3.39 MC/CUMM (3.8-5.5); Red Cell Distribution Width 17.3 % (9.3-17.3); White Blood Count 11.1 T/CUMM (4-12)
[2017-11-09] MEDS ORDERED: ONDANSETRON 4 MG/2 ML VIAL ONE ×2 (07:07→08:44)
[2017-11-09] MEDS: ONDANSETRON 4 MG/2 ML VIAL IV PRN (07:14)
[2017-11-09 07:36] LABS: Calcium 8.3 MG/DL (8.5-10.1); Osmolality,Calculated 294.5 MOS/KG (273-304); Potassium 5.2 MMOL/L (3.5-5.1)
[2017-11-09] MEDS ORDERED: KETAMINE 500 MG/10 ML VIAL ONE (08:33)
[2017-11-09] MEDS ORDERED: PROPOFOL 200 MG/20 ML VIAL IV ONE (08:33)
[2017-11-09] MEDS ORDERED: MIDAZOLAM 2 MG/2 ML VIAL ONE (08:33)
[2017-11-09] MEDS ORDERED: ONDANSETRON 4 MG/2 ML VIAL IV PRN (08:40)
[2017-11-09] MEDS ORDERED: HYDROmorphone 2 MG/1 ML VIAL ONE (08:44)
[2017-11-09] MEDS: HYDROmorphone 2 MG/1 ML VIAL IV PRN ×2 (08:48→09:00)
[2017-11-09] MEDS: ASPIRIN 325 MG TABLET PO SCH (09:42)
[2017-11-09] MEDS: POLYETHYLENE GLYCOL POWDER 17 GM PACK PO SCH (09:42)
[2017-11-09] MEDS: MUPIROCIN 2% OINT 22 GM TUBE TOP SCH ×3 (09:42→21:43)
[2017-11-09] MEDS: CALCIUM ACETATE 667 MG CAPSULE PO SCH ×2 (09:42→17:45)
[2017-11-10 06:07] LABS: Basophils % 0.3 % (0.0-0.8); Eosinophils # 0.3 10*3/uL (0.0-0.87); Hemoglobin 8.4 GM/DL (12.0-16.0); Immature Granulocytes % 0.6 %; Immature Granulocytes Absolute 0.06 #; Lymphocytes # 1.2 10*3/uL (1.4-4.0); Lymphocytes % 11.5 % (21.3-54.2); Mean Corpuscular HGB Conc 32.3 GM/DL (32-36); Mean Corpuscular Hemoglobin 28 PG (27-34); Mean Corpuscular Volume 86.1 FL (87-102); Mean Platelet Volume 11.6 FL (9.6-12.0); Monocytes # 0.7 10*3/uL (0.11-0.8); Neutrophils # 8.2 10*3/uL (1.4-7.4); Neutrophils % 77.6 % (38.7-73.9); Platelet Count 230 T/CUMM (130-400); Red Blood Count 3.02 MC/CUMM (3.8-5.5); Red Cell Distribution Width 17.3 % (9.3-17.3); White Blood Count 10.6 T/CUMM (4-12)
[2017-11-10 06:25] LABS: Calcium 8.5 MG/DL (8.5-10.1); Potassium 5.3 MMOL/L (3.5-5.1)
[2017-11-10] MEDS: ASPIRIN 325 MG TABLET PO SCH (08:58)
[2017-11-10] MEDS: CALCIUM ACETATE 667 MG CAPSULE PO SCH ×2 (08:58→16:46)
[2017-11-10] MEDS: POLYETHYLENE GLYCOL POWDER 17 GM PACK PO SCH (08:59)
[2017-11-10] MEDS: MUPIROCIN 2% OINT 22 GM TUBE TOP SCH ×3 (10:52→22:50)
[2017-11-10] MEDS: MAGNESIUM HYDROXIDE SUSP 30 ML UDCUP PO PRN (18:34)
[2017-11-10 19:59] LABS: Hematocrit 27.1 VOL% (35.7-47.0); Hemoglobin 8.4 GM/DL (12.0-16.0)
[2017-11-11 06:06] LABS: Hematocrit 25.7 VOL% (35.7-47.0); Hemoglobin 8.3 GM/DL (12.0-16.0)
[2017-11-11 06:27] LABS: Calcium 8.7 MG/DL (8.5-10.1); Osmolality,Calculated 281.5 MOS/KG (273-304); Potassium 5.6 MMOL/L (3.5-5.1)
[2017-11-11 07:36] LABS: Basophils # 0.1 10*3/uL (0.0-0.2); Basophils % 0.5 % (0.0-0.8); Eosinophils # 0.2 10*3/uL (0.0-0.87); Eosinophils % 2.4 % (0.00-10.9); Hematocrit 26.6 VOL% (35.7-47.0); Hemoglobin 8.2 GM/DL (12.0-16.0); Immature Granulocytes % 0.5 %; Immature Granulocytes Absolute 0.05 #; Lymphocytes # 1.3 10*3/uL (1.4-4.0); Lymphocytes % 13.9 % (21.3-54.2); Mean Corpuscular HGB Conc 30.8 GM/DL (32-36); Mean Corpuscular Hemoglobin 27 PG (27-34); Mean Corpuscular Volume 88.1 FL (87-102); Mean Platelet Volume 11.5 FL (9.6-12.0); Monocytes # 0.8 10*3/uL (0.11-0.8); Monocytes % 7.9 % (1.7-12.7); Neutrophils # 7.2 10*3/uL (1.4-7.4); Neutrophils % 74.8 % (38.7-73.9); Platelet Count 255 T/CUMM (130-400); Red Blood Count 3.02 MC/CUMM (3.8-5.5); Red Cell Distribution Width 17.5 % (9.3-17.3); White Blood Count 9.7 T/CUMM (4-12)
[2017-11-11] MEDS: ASPIRIN 325 MG TABLET PO SCH (09:03)
[2017-11-11] MEDS: CALCIUM ACETATE 667 MG CAPSULE PO SCH ×2 (09:03→18:22)
[2017-11-11] MEDS: POLYETHYLENE GLYCOL POWDER 17 GM PACK PO SCH (09:03)
[2017-11-11] MEDS: MUPIROCIN 2% OINT 22 GM TUBE TOP SCH ×2 (09:07→16:30)
[2017-11-11] MEDS: ONDANSETRON 4 MG/2 ML VIAL IV PRN ×2 (14:02→17:53)
[2017-11-11] MEDS: SODIUM CHLORIDE 0.9% 1,000 ML IV SCH (15:40)
[2017-11-12 05:54] LABS: Basophils % 0.3 % (0.0-0.8); Eosinophils # 0.4 10*3/uL (0.0-0.87); Eosinophils % 4.9 % (0.00-10.9); Hematocrit 23.3 VOL% (35.7-47.0); Immature Granulocytes % 0.8 %; Immature Granulocytes Absolute 0.07 #; Lymphocytes # 1.1 10*3/uL (1.4-4.0); Lymphocytes % 12.8 % (21.3-54.2); Mean Corpuscular HGB Conc 31.8 GM/DL (32-36); Mean Corpuscular Hemoglobin 27 PG (27-34); Mean Corpuscular Volume 86.3 FL (87-102); Mean Platelet Volume 10.6 FL (9.6-12.0); Monocytes # 0.9 10*3/uL (0.11-0.8); Monocytes % 9.7 % (1.7-12.7); Neutrophils # 6.2 10*3/uL (1.4-7.4); Neutrophils % 71.5 % (38.7-73.9); Platelet Count 236 T/CUMM (130-400); Red Cell Distribution Width 17.6 % (9.3-17.3); White Blood Count 8.7 T/CUMM (4-12)
[2017-11-12 06:03] LABS: Hemoglobin 7.4 GM/DL (12.0-16.0)
[2017-11-12 06:19] LABS: Calcium 8.1 MG/DL (8.5-10.1); Osmolality,Calculated 282.7 MOS/KG (273-304)
[2017-11-12] MEDS: POLYETHYLENE GLYCOL POWDER 17 GM PACK PO SCH (08:21)
[2017-11-12] MEDS: ASPIRIN 325 MG TABLET PO SCH (08:21)
[2017-11-12] MEDS: CALCIUM ACETATE 667 MG CAPSULE PO SCH ×2 (08:21→17:55)
[2017-11-12] MEDS: SODIUM CHLORIDE 0.9% 1,000 ML IV SCH (13:30)
[2017-11-12] MEDS: ONDANSETRON 4 MG/2 ML VIAL IV PRN (15:22)
[2017-11-12] MEDS: MAGNESIUM HYDROXIDE SUSP 30 ML UDCUP PO PRN (18:02)
[2017-11-13 05:59] LABS: Basophils % 0.5 % (0.0-0.8); Eosinophils # 0.5 10*3/uL (0.0-0.87); Eosinophils % 5.5 % (0.00-10.9); Hematocrit 32.8 VOL% (35.7-47.0); Immature Granulocytes % 0.9 %; Immature Granulocytes Absolute 0.08 #; Lymphocytes # 1.1 10*3/uL (1.4-4.0); Lymphocytes % 12.7 % (21.3-54.2); Mean Corpuscular Hemoglobin 28 PG (27-34); Mean Corpuscular Volume 87.2 FL (87-102); Mean Platelet Volume 10.7 FL (9.6-12.0); Monocytes % 10.9 % (1.7-12.7); Neutrophils # 6.1 10*3/uL (1.4-7.4); Neutrophils % 69.5 % (38.7-73.9); Platelet Count 269 T/CUMM (130-400); Red Cell Distribution Width 17.1 % (9.3-17.3); White Blood Count 8.8 T/CUMM (4-12)
[2017-11-13 06:24] LABS: Calcium 8.4 MG/DL (8.5-10.1); Osmolality,Calculated 279.5 MOS/KG (273-304); Potassium 5.1 MMOL/L (3.5-5.1)
[2017-11-13 07:08] LABS: Hemoglobin 10.5 GM/DL (12.0-16.0); Red Blood Count 3.76 MC/CUMM (3.8-5.5)
[2017-11-13] MEDS: ASPIRIN 325 MG TABLET PO SCH (08:34)
[2017-11-13] MEDS: CALCIUM ACETATE 667 MG CAPSULE PO SCH ×2 (08:34→17:18)
[2017-11-13] MEDS: POLYETHYLENE GLYCOL POWDER 17 GM PACK PO SCH (08:36)
[2017-11-13] MEDS: SODIUM CHLORIDE 0.9% 1,000 ML IV SCH (14:17)
[2017-11-13] MEDS: CHLORHEXIDINE 4% SOLN 118 ML BOTTLE TOP SCH ×2 (15:44→20:44)
[2017-11-13] MEDS: CHLORHEXIDINE 0.12% ORAL RINSE 60 ML BOTTLE SWISH/SPIT SCH (20:42)
[2017-11-13] MEDS: MAGNESIUM HYDROXIDE SUSP 30 ML UDCUP PO PRN (20:46)
[2017-11-14] MEDS ORDERED: TISSUE ADHESIVE 1 EACH APPLICATOR TOP ONE (05:20)
[2017-11-14] MEDS ORDERED: VANCOMYCIN 1,000 MG VIAL ONE (05:21)
[2017-11-14] MEDS ORDERED: EPINEPHrine 1 MG/ML VIAL ONE ×2 (05:30→12:48)
[2017-11-14] MEDS ORDERED: FAMOTIDINE 20 MG TABLET PO ONE (05:30)
[2017-11-14] MEDS ORDERED: MIDAZOLAM 10 MG/2 ML VIAL ONE (05:30)
[2017-11-14] MEDS ORDERED: ePHEDrine 50 MG/ML AMP ONE (05:30)
[2017-11-14] MEDS ORDERED: CALCIUM CHLORIDE 1,000 MG/10 ML VIAL IV ONE (05:30)
[2017-11-14] MEDS ORDERED: DIAZEPAM 2 MG TABLET PO ONE (05:30)
[2017-11-14] MEDS ORDERED: NITROGLYCERIN DRIP 50 MG/250 ML BOTTLE IV ONE ×2 (05:31→07:26)
[2017-11-14] MEDS ORDERED: VECURONIUM 10 MG VIAL IV ONE (05:31)
[2017-11-14] MEDS ORDERED: PHENYLEPHRINE 10 MG/1 ML VIAL IV ONE ×2 (05:31→12:23)
[2017-11-14] MEDS ORDERED: ETOMIDATE 40 MG/20 ML VIAL IV ONE (05:31)
[2017-11-14] MEDS ORDERED: TRANEXAMIC ACID 1,000 MG/10 ML VIAL IV ONE (05:31)
[2017-11-14] MEDS ORDERED: DEXMEDETOMIDINE 200 MCG/2 ML VIAL IV ONE (05:32)
[2017-11-14] MEDS ORDERED: CEFUROXIME INJ 1,500 MG in SYRINGE 1 EACH IV ONE (06:00)
[2017-11-14] MEDS: CHLORHEXIDINE 4% SOLN 118 ML BOTTLE TOP SCH ×2 (06:03→09:22)
[2017-11-14] MEDS ORDERED: PHENYLEPHRINE DRIP 40 MG/250 ML PREMIX IV ONE (07:22)
[2017-11-14] MEDS ORDERED: SODIUM BICARBONATE 50 MEQ/50 ML SYRINGE IV ONE ×2 (07:25→12:22)
[2017-11-14] MEDS ORDERED: EPINEPHrine 1 MG/10 ML SYRINGE ONE (07:26)
[2017-11-14] MEDS ORDERED: CALCIUM CHLORIDE 1,000 MG/10 ML SYRINGE IV ONE (07:26)
[2017-11-14] MEDS: CHLORHEXIDINE 0.12% ORAL RINSE 60 ML BOTTLE SWISH/SPIT SCH ×2 (08:11→21:40)
[2017-11-14] MEDS: ASPIRIN 325 MG TABLET PO SCH (08:11)
[2017-11-14] MEDS: POLYETHYLENE GLYCOL POWDER 17 GM PACK PO SCH (08:11)
[2017-11-14] MEDS: CALCIUM ACETATE 667 MG CAPSULE PO SCH (08:11)
[2017-11-14 08:23] LABS: ABG Base Excess 1.4 MMOL/L (-2.5-2.5); ABG HCO3 25.7 MMOL/L (20-26); ABG PCO2 36.6 MM HG (35-48); ABG PH 7.447 (7.35-7.45); Glucose Heart Surgery 103 MG/DL (74-106); Hematocrit Heart Surgery 30.4 PERCENT (37-47); Hemoglobin Heart Surgery 9.8 G/DL (12.0-16.0); Ionized Calcium Arterial 1.13 MMOL/L (1.21-1.46); PCO2 Patient Temp Arterial 36.6 MMHG; PH Patient Temp Arterial 7.447; Patient Temperature 37 CELCIUS; Potassium Heart/CVR 4.2 MMOL/L (3.5-5.1); Sodium Heart/CVR 138 MMOL/L (135-145)
[2017-11-14 09:42] LABS: Glucose Heart Surgery 282 MG/DL (74-106); PCO2 Patient Temp Venous 26.1 MM HG; PH Patient Temp Venous 7.528; PO2 Patient Temp Venous 30.2 MM HG; Patient Temperature 32 CELCIUS; Sodium Heart/CVR 132 MMOL/L (135-145); VBG Base Excess -0.6 MEQ/L (0-4); VBG HCO3 23.8 MEQ/L (24-28); VBG Oxygen Saturation 80.6 %; VBG PCO2 33.2 MMHG (41-51); VBG PH 7.453; VBG PO2 42.5 MMHG (17-40)
[2017-11-14 09:43] LABS: Hemoglobin Heart Surgery < 5.0 G/DL (12.0-16.0)
[2017-11-14 10:05] LABS: Hematocrit Heart Surgery 23.9 PERCENT (37-47); Hemoglobin Heart Surgery 7.7 G/DL (12.0-16.0); PCO2 Patient Temp Venous 27.8 MM HG; PH Patient Temp Venous 7.506; PO2 Patient Temp Venous 28.1 MM HG; Potassium Heart/CVR 4.3 MMOL/L (3.5-5.1); VBG Base Excess -0.4 MEQ/L (0-4); VBG HCO3 23.9 MEQ/L (24-28); VBG Oxygen Saturation 79.7 %; VBG PCO2 35.4 MMHG (41-51); VBG PH 7.432; VBG PO2 39.9 MMHG (17-40)
[2017-11-14 10:34] LABS: Hematocrit Heart Surgery 22.5 PERCENT (37-47); Hemoglobin Heart Surgery 7.2 G/DL (12.0-16.0); PCO2 Patient Temp Venous 26.9 MM HG; PH Patient Temp Venous 7.46; Potassium Heart/CVR 3.9 MMOL/L (3.5-5.1); VBG Base Excess -3.9 MEQ/L (0-4); VBG Oxygen Saturation 85.5 %; VBG PCO2 34.3 MMHG (41-51); VBG PH 7.387; VBG PO2 47.8 MMHG (17-40)
[2017-11-14 11:09] LABS: Hemoglobin Heart Surgery 6.9 G/DL (12.0-16.0); VBG Base Excess -2.1 MEQ/L (0-4); VBG HCO3 21.3 MEQ/L (24-28); VBG Oxygen Saturation 86.8 %; VBG PCO2 30.2 MMHG (41-51); VBG PH 7.467; VBG PO2 52.4 MMHG (17-40)
[2017-11-14 11:10] LABS: PCO2 Patient Temp Venous 24.3 MM HG; PH Patient Temp Venous 7.543; PO2 Patient Temp Venous 36.9 MM HG
[2017-11-14 11:36] LABS: Hematocrit Heart Surgery 26.6 PERCENT (37-47); Hemoglobin Heart Surgery 8.5 G/DL (12.0-16.0); PCO2 Patient Temp Venous 38.2 MM HG; PH Patient Temp Venous 7.354; PO2 Patient Temp Venous 38.2 MM HG; Potassium Heart/CVR 4.6 MMOL/L (3.5-5.1); VBG Base Excess -3.9 MEQ/L (0-4); VBG HCO3 20.8 MEQ/L (24-28); VBG Oxygen Saturation 73.7 %; VBG PCO2 38.2 MMHG (41-51); VBG PH 7.354; VBG PO2 38.2 MMHG (17-40)
[2017-11-14] MEDS ORDERED: FAMOTIDINE 20 MG/2 ML VIAL IV ONE (11:50)
[2017-11-14 12:08] LABS: ABG Base Excess 3.4 MMOL/L (-2.5-2.5); ABG HCO3 27.5 MMOL/L (20-26); ABG PCO2 38.4 MM HG (35-48); ABG TCO2 25.5 MMOL/L (23-27); Glucose Heart Surgery 254 MG/DL (74-106); Hematocrit Heart Surgery 24.6 PERCENT (37-47); Hemoglobin Heart Surgery 7.9 G/DL (12.0-16.0); Ionized Calcium Arterial 1.04 MMOL/L (1.21-1.46); PCO2 Patient Temp Arterial 38.4 MMHG; Patient Temperature 37 CELCIUS; Potassium Heart/CVR 3.7 MMOL/L (3.5-5.1); Sodium Heart/CVR 142 MMOL/L (135-145)
[2017-11-14] MEDS ORDERED: THROMBIN TOPICAL (RECOMBINANT) 5,000 UNIT VIAL TOP ONE (12:11)
[2017-11-14] MEDS ORDERED: PROTAMINE SULFATE 250 MG/25 ML VIAL IV ONE (12:22)
[2017-11-14] MEDS ORDERED: DEXTROSE 5% KCL 20 MEQ 40 MEQ/2,000 ML BAG IV ONE (12:22)
[2017-11-14] MEDS ORDERED: MAGNESIUM SULFATE 1 GM/2 ML VIAL ONE (12:22)
[2017-11-14] MEDS ORDERED: ALBUMIN 25% 25 GM/100 ML VIAL IV ONE (12:22)
[2017-11-14] MEDS ORDERED: HEPARIN 10,000 UNIT/10 ML VIAL ONE (12:23)
[2017-11-14] MEDS ORDERED: MANNITOL 12.5 GM/50 ML VIAL IV ONE (12:23)
[2017-11-14] MEDS ORDERED: PROTAMINE SULFATE 50 MG/5 ML VIAL IV ONE (12:23)
[2017-11-14] MEDS ORDERED: methylPREDNISolone SOD SUC 1,000 MG/8 ML VIAL ONE (12:23)
[2017-11-14 12:30] LABS: Hematocrit 22.6 VOL% (35.7-47.0); Hemoglobin 7.7 GM/DL (12.0-16.0); Platelet Count 130 T/CUMM (130-400)
[2017-11-14 12:51] LABS: INR 1.4; PT Patient Result 14.7 SECS
[2017-11-14] MEDS ORDERED: SEVOFLURANE 1 UNIT/15 MINUTE INH ONE (13:26)
[2017-11-14] MEDS ORDERED: LACTATED RINGERS 1,000 ML IV ONE (13:26)
[2017-11-14] MEDS ORDERED: SODIUM CHLORIDE 0.9% 1,000 ML IV ONE (13:26)
[2017-11-14] MEDS ORDERED: SODIUM CHLORIDE 0.9% 100 ML IV ONE (13:26)
[2017-11-14] MEDS ORDERED: SODIUM CHLORIDE 0.9% 250 ML IV ONE (13:26)
[2017-11-14] MEDS ORDERED: MAGNESIUM SULF RIDER 4 GM in PREMIX 1 EACH IV PRN (13:30)
[2017-11-14] MEDS ORDERED: DEXTROSE 50% 25 GM/50 ML VIAL IV PRN ×2 (13:30)
[2017-11-14] MEDS ORDERED: POTASSIUM CHLORIDE RIDER 10 MEQ in PREMIX 1 EACH IV PRN (13:30)
[2017-11-14] MEDS ORDERED: MAGNESIUM SULF RIDER 2 GM in PREMIX 1 EACH IV PRN (13:30)
[2017-11-14] MEDS ORDERED: ACETAMINOPHEN 650 MG SUPP RECTAL PRN (13:30)
[2017-11-14] MEDS ORDERED: CALCIUM CHLORIDE 1,000 MG/10 ML SYRINGE IV PRN (13:30)
[2017-11-14] MEDS ORDERED: CHLORHEXIDINE 4% SOLN 118 ML BOTTLE TOP PRN (13:30)
[2017-11-14] MEDS ORDERED: POTASSIUM CHLORIDE RIDER 20 MEQ in PREMIX 1 EACH IV PRN (13:30)
[2017-11-14] MEDS ORDERED: ONDANSETRON 4 MG/2 ML VIAL IV PRN (13:30)
[2017-11-14] MEDS ORDERED: MORPHINE 10 MG/1 ML VIAL IV PRN (13:30)
[2017-11-14] MEDS ORDERED: SODIUM CHLORIDE 0.9% 250 ML IV PRN (13:30)
[2017-11-14] MEDS ORDERED: MIDAZOLAM 2 MG/2 ML VIAL IV PRN (13:30)
[2017-11-14] MEDS ORDERED: INSULIN REGULAR 100 UNIT/ML IV PRN (13:30)
[2017-11-14 13:56] LABS: ABG Base Excess -0.8 MMOL/L (-2.5-2.5); ABG HCO3 23.7 MMOL/L (20-26); ABG Oxygen Saturation 98.8 % (95-100); ABG PCO2 36.1 MM HG (35-48); ABG PH 7.419 (7.35-7.45); ABG TCO2 21.8 MMOL/L (23-27); Glucose Heart Surgery 263 MG/DL (74-106); Hematocrit Heart Surgery 24.8 PERCENT (37-47); Potassium Heart/CVR 3.5 MMOL/L (3.5-5.1)
[2017-11-14 14:07] LABS: Basophils % 0.2 % (0.0-0.8); Eosinophils # 0.1 10*3/uL (0.0-0.87); Eosinophils % 0.4 % (0.00-10.9); Hematocrit 24.2 VOL% (35.7-47.0); Hemoglobin 7.9 GM/DL (12.0-16.0); Immature Granulocytes % 1.7 %; Immature Granulocytes Absolute 0.23 #; Lymphocytes # 1.3 10*3/uL (1.4-4.0); Lymphocytes % 9.5 % (21.3-54.2); Mean Corpuscular HGB Conc 32.6 GM/DL (32-36); Mean Corpuscular Hemoglobin 30 PG (27-34); Monocytes # 0.8 10*3/uL (0.11-0.8); Monocytes % 5.8 % (1.7-12.7); Neutrophils # 11.4 10*3/uL (1.4-7.4); Neutrophils % 82.4 % (38.7-73.9); Platelet Count 165 T/CUMM (130-400); Red Blood Count 2.66 MC/CUMM (3.8-5.5); Red Cell Distribution Width 15.2 % (9.3-17.3); White Blood Count 13.9 T/CUMM (4-12)
[2017-11-14] MEDS ORDERED: POTASSIUM CHLORIDE RIDER 100 ML IV ONE (14:07)
[2017-11-14 14:13] LABS: INR 1.2; PT Patient Result 12.3 SECS
[2017-11-14 14:19] LABS: Lactic Acid 1.3 MMOL/L (0.4-2.0)
[2017-11-14 14:26] LABS: Calcium 8.5 MG/DL (8.5-10.1); Osmolality,Calculated 293.1 MOS/KG (273-304); Potassium 3.6 MMOL/L (3.5-5.1)
[2017-11-14] MEDS: INSULIN REGULAR DRIP 100 ML IV SCH (14:26)
[2017-11-14] MEDS: SODIUM CHLORIDE 0.9% 1,000 ML IV SCH (14:59)
[2017-11-14 16:25] LABS: ABG Base Excess -2.2 MMOL/L (-2.5-2.5); ABG HCO3 22.6 MMOL/L (20-26); ABG Oxygen Saturation 99.2 % (95-100); ABG PCO2 35.9 MM HG (35-48); ABG PH 7.399 (7.35-7.45); ABG TCO2 20.7 MMOL/L (23-27); Glucose Heart Surgery 229 MG/DL (74-106); Hematocrit Heart Surgery 25.4 PERCENT (37-47); Hemoglobin Heart Surgery 8.2 G/DL (12.0-16.0); Potassium Heart/CVR 4.7 MMOL/L (3.5-5.1)
[2017-11-14] MEDS ORDERED: METOPROLOL TARTRATE 5 MG/5 ML VIAL IV ONE ×2 (17:42→17:44)
[2017-11-14] MEDS: MORPHINE 2 MG/1 ML SYRINGE IV PRN ×2 (18:14→22:53)
[2017-11-14] MEDS: ALBUMIN 5% 12.5 GM in PREMIX 1 EACH IV PRN ×2 (19:18→20:37)
[2017-11-14] MEDS: CEFUROXIME INJ 1,500 MG in SYRINGE 1 EACH IV SCH (21:40)
[2017-11-14] MEDS: NITROGLYCERIN DRIP 50 MG/250 ML BOTTLE IV SCH (23:43)
[2017-11-15 04:02] LABS: Basophils % 0.2 % (0.0-0.8); Hematocrit 21.6 VOL% (35.7-47.0); Hemoglobin 7.1 GM/DL (12.0-16.0); Immature Granulocytes % 1.5 %; Lymphocytes # 0.7 10*3/uL (1.4-4.0); Lymphocytes % 5.4 % (21.3-54.2); Mean Corpuscular HGB Conc 32.9 GM/DL (32-36); Mean Corpuscular Hemoglobin 30 PG (27-34); Mean Corpuscular Volume 91.9 FL (87-102); Mean Platelet Volume 11.5 FL (9.6-12.0); Monocytes # 0.8 10*3/uL (0.11-0.8); Neutrophils # 11.5 10*3/uL (1.4-7.4); Neutrophils % 86.9 % (38.7-73.9); Platelet Count 194 T/CUMM (130-400); Red Blood Count 2.35 MC/CUMM (3.8-5.5); Red Cell Distribution Width 16.2 % (9.3-17.3); White Blood Count 13.2 T/CUMM (4-12)
[2017-11-15 04:17] LABS: ABG Base Excess -4.4 MMOL/L (-2.5-2.5); ABG HCO3 20.7 MMOL/L (20-26); ABG Oxygen Saturation 99.4 % (95-100); ABG PCO2 38.8 MM HG (35-48); ABG TCO2 19.7 MMOL/L (23-27); Glucose Heart Surgery 134 MG/DL (74-106); Hematocrit Heart Surgery 24.4 PERCENT (37-47); Hemoglobin Heart Surgery 7.8 G/DL (12.0-16.0); Potassium Heart/CVR 5.6 MMOL/L (3.5-5.1)
[2017-11-15 04:36] LABS: Osmolality,Calculated 285.4 MOS/KG (273-304); Potassium 5.8 MMOL/L (3.5-5.1)
[2017-11-15] MEDS ORDERED: SODIUM CHLORIDE 0.9% 1,000 ML IV PRN (07:11)
[2017-11-15] MEDS: CEFUROXIME INJ 1,500 MG in SYRINGE 1 EACH IV SCH ×2 (08:28→21:22)
[2017-11-15] MEDS: CHLORHEXIDINE 0.12% ORAL RINSE 60 ML BOTTLE SWISH/SPIT SCH ×2 (08:52→21:22)
[2017-11-15 12:34] LABS: ABG Base Excess -1.5 MMOL/L (-2.5-2.5); ABG HCO3 21.7 MMOL/L (20-26); ABG PCO2 31.5 MM HG (35-48); ABG PH 7.456 (7.35-7.45); ABG PO2 113.1 MM HG (80-95); ABG TCO2 22.7 MMOL/L (23-27)
[2017-11-15] MEDS: INSULIN REGULAR DRIP 100 ML IV SCH (12:59)
[2017-11-15] MEDS ORDERED: FUROSEMIDE 40 MG TABLET PO SCH (13:04)
[2017-11-15] MEDS ORDERED: ATORVASTATIN 40 MG TABLET PO SCH ×2 (13:04→21:00)
[2017-11-15] MEDS: ASPIRIN EC 325 MG TABLET PO SCH (13:15)
[2017-11-15] MEDS: METOPROLOL TARTRATE 25 MG TABLET PO SCH ×2 (13:15→21:21)
[2017-11-15] MEDS: cloNIDine 0.1 MG TABLET PO SCH ×2 (14:11→21:22)
[2017-11-15] MEDS: MORPHINE 2 MG/1 ML SYRINGE IV PRN ×2 (17:05→21:29)
[2017-11-15] MEDS: NITROGLYCERIN DRIP 50 MG/250 ML BOTTLE IV SCH (21:19)
[2017-11-16] MEDS: MORPHINE 2 MG/1 ML SYRINGE IV PRN (00:55)
[2017-11-16 04:27] LABS: Basophils % 0.2 % (0.0-0.8); Hematocrit 28.2 VOL% (35.7-47.0); Hemoglobin 8.3 GM/DL (12.0-16.0); Immature Granulocytes Absolute 0.14 #; Lymphocytes # 0.9 10*3/uL (1.4-4.0); Lymphocytes % 5.9 % (21.3-54.2); Mean Corpuscular HGB Conc 29.4 GM/DL (32-36); Mean Corpuscular Hemoglobin 29 PG (27-34); Mean Corpuscular Volume 99.6 FL (87-102); Monocytes # 1.1 10*3/uL (0.11-0.8); Monocytes % 7.4 % (1.7-12.7); NRBC # 0.06 10*3/uL; Neutrophils # 12.4 10*3/uL (1.4-7.4); Neutrophils % 85.5 % (38.7-73.9); Platelet Count 125 T/CUMM (130-400); Red Blood Count 2.83 MC/CUMM (3.8-5.5); Red Cell Distribution Width 17.9 % (9.3-17.3); White Blood Count 14.5 T/CUMM (4-12)
[2017-11-16 04:53] LABS: Osmolality,Calculated 278.8 MOS/KG (273-304)
[2017-11-16] MEDS: cloNIDine 0.1 MG TABLET PO SCH ×3 (09:00→21:08)
[2017-11-16] MEDS: METOPROLOL TARTRATE 25 MG TABLET PO SCH ×2 (09:00→21:08)
[2017-11-16] MEDS: CHLORHEXIDINE 0.12% ORAL RINSE 60 ML BOTTLE SWISH/SPIT SCH ×2 (09:00→21:09)
[2017-11-16] MEDS: ASPIRIN EC 325 MG TABLET PO SCH (09:00)
[2017-11-16] MEDS: SULFAMETHOX/TRIMETHOPRIM 800-160 MG TABLET PO SCH (09:00)
[2017-11-16] MEDS: INSULIN REGULAR DRIP 100 ML IV SCH (13:30)
[2017-11-16] MEDS ORDERED: MAGNESIUM HYDROXIDE SUSP 30 ML UDCUP PO PRN (22:27)
[2017-11-17] MEDS: NITROGLYCERIN DRIP 50 MG/250 ML BOTTLE IV SCH (00:55)
[2017-11-17 05:41] LABS: Calcium 8.1 MG/DL (8.5-10.1); Osmolality,Calculated 288.5 MOS/KG (273-304); Potassium 4.6 MMOL/L (3.5-5.1)
[2017-11-17 06:41] LABS: Basophils % 0.2 % (0.0-0.8); Eosinophils # 0.1 10*3/uL (0.0-0.87); Eosinophils % 0.6 % (0.00-10.9); Hematocrit 24.1 VOL% (35.7-47.0); Hemoglobin 7.5 GM/DL (12.0-16.0); Immature Granulocytes Absolute 0.13 #; Lymphocytes % 7.5 % (21.3-54.2); Mean Corpuscular HGB Conc 31.1 GM/DL (32-36); Mean Corpuscular Hemoglobin 29 PG (27-34); Mean Corpuscular Volume 93.4 FL (87-102); Mean Platelet Volume 12.2 FL (9.6-12.0); Monocytes % 7.7 % (1.7-12.7); NRBC # 0.04 10*3/uL; Neutrophils # 10.6 10*3/uL (1.4-7.4); Platelet Count 118 T/CUMM (130-400); Red Blood Count 2.58 MC/CUMM (3.8-5.5); Red Cell Distribution Width 17.3 % (9.3-17.3); White Blood Count 12.8 T/CUMM (4-12)
[2017-11-17] MEDS: cloNIDine 0.1 MG TABLET PO SCH ×3 (09:00→21:24)
[2017-11-17] MEDS: CHLORHEXIDINE 0.12% ORAL RINSE 60 ML BOTTLE SWISH/SPIT SCH ×2 (09:00→21:24)
[2017-11-17] MEDS: ASPIRIN EC 325 MG TABLET PO SCH (09:00)
[2017-11-17] MEDS: METOPROLOL TARTRATE 25 MG TABLET PO SCH ×2 (09:00→21:25)
[2017-11-17] MEDS: SULFAMETHOX/TRIMETHOPRIM 800-160 MG TABLET PO SCH (09:00)
[2017-11-18 05:38] LABS: Basophils % 0.3 % (0.0-0.8); Eosinophils # 0.2 10*3/uL (0.0-0.87); Hematocrit 27.9 VOL% (35.7-47.0); Hemoglobin 8.7 GM/DL (12.0-16.0); Immature Granulocytes % 1.6 %; Immature Granulocytes Absolute 0.25 #; Lymphocytes % 6.7 % (21.3-54.2); Mean Corpuscular HGB Conc 31.2 GM/DL (32-36); Mean Corpuscular Hemoglobin 29 PG (27-34); Mean Corpuscular Volume 94.3 FL (87-102); Mean Platelet Volume 12.2 FL (9.6-12.0); Monocytes # 0.8 10*3/uL (0.11-0.8); Monocytes % 5.2 % (1.7-12.7); NRBC # 0.04 10*3/uL; Neutrophils # 13.1 10*3/uL (1.4-7.4); Neutrophils % 85.2 % (38.7-73.9); Platelet Count 161 T/CUMM (130-400); Red Blood Count 2.96 MC/CUMM (3.8-5.5); Red Cell Distribution Width 16.9 % (9.3-17.3); White Blood Count 15.4 T/CUMM (4-12)
[2017-11-18 06:15] LABS: Osmolality,Calculated 279.8 MOS/KG (273-304)
[2017-11-18] MEDS: SULFAMETHOX/TRIMETHOPRIM 800-160 MG TABLET PO SCH (09:20)
[2017-11-18] MEDS: ASPIRIN EC 325 MG TABLET PO SCH (09:21)
[2017-11-18] MEDS: cloNIDine 0.1 MG TABLET PO SCH ×3 (09:21→22:52)
[2017-11-18] MEDS: METOPROLOL TARTRATE 25 MG TABLET PO SCH ×2 (09:21→22:52)
[2017-11-18] MEDS: CHLORHEXIDINE 0.12% ORAL RINSE 60 ML BOTTLE SWISH/SPIT SCH ×2 (09:23→22:52)
[2017-11-19] MEDS: MORPHINE 2 MG/1 ML SYRINGE IV PRN (02:05)
[2017-11-19 05:18] LABS: Basophils % 0.4 % (0.0-0.8); Eosinophils # 0.3 10*3/uL (0.0-0.87); Eosinophils % 2.5 % (0.00-10.9); Hematocrit 23.9 VOL% (35.7-47.0); Immature Granulocytes % 1.5 %; Immature Granulocytes Absolute 0.15 #; Lymphocytes % 9.5 % (21.3-54.2); Mean Corpuscular HGB Conc 32.6 GM/DL (32-36); Mean Corpuscular Hemoglobin 30 PG (27-34); Mean Corpuscular Volume 92.3 FL (87-102); Mean Platelet Volume 11.3 FL (9.6-12.0); Monocytes # 0.7 10*3/uL (0.11-0.8); Monocytes % 6.9 % (1.7-12.7); Neutrophils # 8.1 10*3/uL (1.4-7.4); Neutrophils % 79.2 % (38.7-73.9); Platelet Count 149 T/CUMM (130-400); Red Blood Count 2.59 MC/CUMM (3.8-5.5); Red Cell Distribution Width 16.9 % (9.3-17.3)
[2017-11-19 05:52] LABS: Hemoglobin 7.8 GM/DL (12.0-16.0); White Blood Count 10.2 T/CUMM (4-12)
[2017-11-19 05:53] LABS: Calcium 7.5 MG/DL (8.5-10.1); Osmolality,Calculated 287.5 MOS/KG (273-304); Potassium 4.8 MMOL/L (3.5-5.1)
[2017-11-19 08:25] VITALS: BP 135/85
[2017-11-19] MEDS: SULFAMETHOX/TRIMETHOPRIM 800-160 MG TABLET PO SCH (14:09)
[2017-11-19] MEDS: METOPROLOL TARTRATE 25 MG TABLET PO SCH (14:09)
[2017-11-19] MEDS: cloNIDine 0.1 MG TABLET PO SCH ×2 (14:10→15:25)
[2017-11-19] MEDS: ASPIRIN EC 325 MG TABLET PO SCH (14:10)
[2017-11-19] MEDS: CHLORHEXIDINE 0.12% ORAL RINSE 60 ML BOTTLE SWISH/SPIT SCH (14:11)
== END 2017-11-19 16:15 | DRG 216 ==
LOC: EDBD → EDUNIT# → N.ED 15:11 → SUATTDRO 19:30 → N.EDINP 19:30 → N.TELEN 20:08 → N.5E 20:14 → N.CVR 11-14 08:19 → N.ICU 11-15 08:35 → N.TELEN 11-17 14:26
PROVIDERS: ADMIT Hospitalist; ATTEND Internal Medicine

== ENCOUNTER 2018-01-27 09:16 | Inpatient (IN) ==
[2018-01-27 10:52] LABS: Basophils # 0.1 10*3/uL (0.0-0.2); Basophils % 0.6 % (0.0-0.8); Eosinophils # 0.4 10*3/uL (0.0-0.87); Eosinophils % 5.4 % (0.00-10.9); Hematocrit 32.7 VOL% (35.7-47.0); Hemoglobin 10.2 GM/DL (12.0-16.0); Immature Granulocytes % 0.4 %; Immature Granulocytes Absolute 0.03 #; Lymphocytes # 1.3 10*3/uL (1.4-4.0); Lymphocytes % 16.8 % (21.3-54.2); Mean Corpuscular HGB Conc 31.2 GM/DL (32-36); Mean Corpuscular Hemoglobin 28 PG (27-34); Mean Corpuscular Volume 89.1 FL (87-102); Mean Platelet Volume 11.3 FL (9.6-12.0); Monocytes # 0.8 10*3/uL (0.11-0.8); Monocytes % 9.8 % (1.7-12.7); Neutrophils # 5.3 10*3/uL (1.4-7.4); Platelet Count 211 T/CUMM (130-400); Red Blood Count 3.67 MC/CUMM (3.8-5.5); Red Cell Distribution Width 18.6 % (9.3-17.3); White Blood Count 7.9 T/CUMM (4-12)
[2018-01-27 11:00] LABS: PT Patient Result 10.5 SECS
[2018-01-27 11:28] LABS: Alanine Aminotransferase 18 U/L (13-56); Alkaline Phosphatase 96 U/L (45-117); Aspartate Amino Transferase 24 U/L (0-37); Bilirubin,Total < 0.39 MG/DL (0.2-1.0); Blood Urea Nitrogen 48 MG/DL (7-18); Calcium 8.1 MG/DL (8.5-10.1); Glucose 85 MG/DL (74-106); Osmolality,Calculated 294.1 MOS/KG (273-304); Potassium 3.5 MMOL/L (3.5-5.1); Sodium 142 MMOL/L (136-145); Total Protein 7.3 G/DL (6.4-8.3)
[2018-01-27] MEDS ORDERED: ACETAMINOPHEN 325 MG TABLET PO PRN (12:16)
[2018-01-27] MEDS ORDERED: ONDANSETRON 4 MG/2 ML VIAL IV PRN (12:16)
[2018-01-27] MEDS: CALCIUM ACETATE 667 MG CAPSULE PO SCH (16:15)
[2018-01-27] MEDS: ATORVASTATIN 40 MG TABLET PO SCH (20:43)
[2018-01-27] MEDS: DILTIAZEM CD 180 MG CAPSULE PO SCH (20:43)
[2018-01-28 08:17] LABS: Basophils % 0.6 % (0.0-0.8); Eosinophils # 0.3 10*3/uL (0.0-0.87); Eosinophils % 4.6 % (0.00-10.9); Hematocrit 29.1 VOL% (35.7-47.0); Hemoglobin 9.1 GM/DL (12.0-16.0); Immature Granulocytes % 0.4 %; Immature Granulocytes Absolute 0.03 #; Lymphocytes # 1.2 10*3/uL (1.4-4.0); Lymphocytes % 16.4 % (21.3-54.2); Mean Corpuscular HGB Conc 31.3 GM/DL (32-36); Mean Corpuscular Hemoglobin 28 PG (27-34); Mean Corpuscular Volume 87.9 FL (87-102); Mean Platelet Volume 12.2 FL (9.6-12.0); Monocytes # 0.6 10*3/uL (0.11-0.8); Monocytes % 8.8 % (1.7-12.7); Neutrophils % 69.2 % (38.7-73.9); Platelet Count 210 T/CUMM (130-400); Red Blood Count 3.31 MC/CUMM (3.8-5.5); Red Cell Distribution Width 18.7 % (9.3-17.3); White Blood Count 7.2 T/CUMM (4-12)
[2018-01-28] MEDS: LOSARTAN 25 MG TABLET PO SCH (08:19)
[2018-01-28] MEDS: hydrALAZINE 25 MG TABLET PO SCH ×2 (08:19→17:26)
[2018-01-28] MEDS: CALCIUM ACETATE 667 MG CAPSULE PO SCH ×3 (08:19→17:54)
[2018-01-28] MEDS: METOPROLOL TARTRATE 50 MG TABLET PO SCH ×2 (08:19→12:54)
[2018-01-28 08:45] LABS: Calcium 7.8 MG/DL (8.5-10.1); Potassium 3.8 MMOL/L (3.5-5.1)
[2018-01-28] MEDS ORDERED: LIDOCAINE 1% 50 ML VIAL ONE (11:43)
[2018-01-28] MEDS ORDERED: BUPIVACAINE MPF 0.25% 30 ML VIAL ONE (11:43)
[2018-01-28] MEDS ORDERED: HEPARIN 5,000 UNIT/1 ML VIAL ONE (11:43)
[2018-01-28] MEDS: PANTOPRAZOLE 40 MG TABLET PO SCH (12:24)
[2018-01-28] MEDS ORDERED: fentaNYL 100 MCG/2 ML VIAL ONE (12:59)
[2018-01-28] MEDS ORDERED: KETAMINE 500 MG/10 ML VIAL ONE (13:00)
[2018-01-28] MEDS ORDERED: MIDAZOLAM 2 MG/2 ML VIAL ONE (13:01)
[2018-01-28] MEDS ORDERED: EPOETIN ALFA 2,000 UNIT/1 ML VIAL IV PRN (14:47)
[2018-01-28] MEDS ORDERED: HYDROCORTISONE 1% CREAM 28 GM TUBE TOP PRN (15:38)
[2018-01-28] MEDS ORDERED: HEPARIN 10,000 UNIT/10 ML VIAL IV PRN (17:05)
[2018-01-28] MEDS: ASPIRIN EC 325 MG TABLET PO SCH (17:26)
[2018-01-28] MEDS ORDERED: NITROGLYCERIN SL 0.4 MG TABLET SL ONE (19:35)
[2018-01-28] MEDS: ATORVASTATIN 40 MG TABLET PO SCH (20:50)
[2018-01-28] MEDS: DILTIAZEM CD 180 MG CAPSULE PO SCH (20:51)
[2018-01-29] MEDS ORDERED: ALUMINUM/MAGNES/SIMETH MAX STR 30 ML UDCUP PO PRN (04:32)
[2018-01-29] MEDS: CALCIUM ACETATE 667 MG CAPSULE PO SCH ×2 (09:54→13:21)
[2018-01-29] MEDS: PANTOPRAZOLE 40 MG TABLET PO SCH (09:55)
[2018-01-29] MEDS: METOPROLOL TARTRATE 50 MG TABLET PO SCH ×2 (09:55→13:21)
[2018-01-29] MEDS: LOSARTAN 25 MG TABLET PO SCH (09:55)
[2018-01-29] MEDS: hydrALAZINE 25 MG TABLET PO SCH (09:57)
[2018-01-29 11:57] VITALS: BP 177/99
[2018-01-29] MEDS: ASPIRIN EC 325 MG TABLET PO SCH (13:21)
[2018-01-29] MEDS ORDERED: hydrALAZINE 25 MG TABLET PO SCH (15:00)
== END 2018-01-29 13:47 | disposition home or self-care (01) | DRG 314 ==
LOC: N.ED 09:16 → N.EDINP 13:55 → N.2E 13:58

== ENCOUNTER 2019-10-04 02:06 | Inpatient (IN) ==
[2019-10-04] MEDS ORDERED: ONDANSETRON 4 MG/2 ML VIAL IV STA (02:42)
[2019-10-04] MEDS ORDERED: MORPHINE 4 MG/1 ML VIAL IV STA (02:42)
[2019-10-04 04:17] LABS: Basophils % 0.3 % (0.0-0.8); Eosinophils % 0.4 % (0.00-10.9); Hemoglobin 9.6 GM/DL (12.0-16.0); Immature Granulocytes % 0.6 %; Immature Granulocytes Absolute 0.06 #; Lymphocytes # 0.8 10*3/uL (1.4-4.0); Lymphocytes % 8.8 % (21.3-54.2); Mean Corpuscular Volume 93.2 FL (87-102); Mean Platelet Volume 11.9 FL (9.6-12.0); Monocytes % 9.8 % (1.7-12.7); Neutrophils % 80.1 % (38.7-73.9); Red Blood Count 3.22 MC/CUMM (3.8-5.5); Red Cell Distribution Width 15.1 % (9.3-17.3); White Blood Count 9.5 T/CUMM (4-12)
[2019-10-04 04:23] LABS: Platelet Count 115 T/CUMM (130-400)
[2019-10-04 04:38] LABS: Albumin 3.3 G/DL (3.4-5.0); Bilirubin,Total 0.6 MG/DL (0.2-1.0); Osmolality,Calculated 291.7 MOS/KG (273-304); Total Protein 6.6 G/DL (6.4-8.3)
[2019-10-04] MEDS ORDERED: DOCUSATE SODIUM 100 MG CAPSULE PO PRN (05:20)
[2019-10-04] MEDS ORDERED: PROMETHAZINE 25 MG TABLET PO PRN (05:20)
[2019-10-04] MEDS ORDERED: MORPHINE 4 MG/1 ML VIAL IV PRN (05:20)
[2019-10-04] MEDS ORDERED: ONDANSETRON 4 MG/2 ML VIAL IV PRN (05:20)
[2019-10-04] MEDS ORDERED: ACETAMINOPHEN 325 MG TABLET PO PRN (05:20)
[2019-10-04] MEDS ORDERED: hydrALAZINE 20 MG/1 ML VIAL IV PRN (05:23)
[2019-10-04] MEDS: PANTOPRAZOLE 40 MG TABLET PO SCH (08:23)
[2019-10-04] MEDS: METOPROLOL TARTRATE 50 MG TABLET PO SCH (12:37)
[2019-10-04] MEDS: CALCIUM ACETATE 667 MG CAPSULE PO SCH ×2 (12:37→17:57)
[2019-10-04] MEDS: hydrALAZINE 25 MG TABLET PO SCH ×2 (15:35→21:11)
[2019-10-04] MEDS: guaiFENesin/DM ER 600-30 MG TABLET PO PRN (21:11)
[2019-10-04] MEDS: DILTIAZEM CD 180 MG CAPSULE PO SCH (21:11)
[2019-10-04] MEDS: ATORVASTATIN 40 MG TABLET PO SCH (21:11)
[2019-10-05 06:43] LABS: Basophils % 0.3 % (0.0-0.8); Eosinophils # 0.1 10*3/uL (0.0-0.87); Eosinophils % 1.5 % (0.00-10.9); Hematocrit 22.4 VOL% (35.7-47.0); Immature Granulocytes % 0.5 %; Immature Granulocytes Absolute 0.04 #; Lymphocytes # 0.8 10*3/uL (1.4-4.0); Lymphocytes % 10.1 % (21.3-54.2); Mean Corpuscular HGB Conc 31.3 GM/DL (32-36); Mean Corpuscular Volume 94.1 FL (87-102); Mean Platelet Volume 12.3 FL (9.6-12.0); Monocytes % 12.2 % (1.7-12.7); Neutrophils % 75.4 % (38.7-73.9); Red Blood Count 2.38 MC/CUMM (3.8-5.5); White Blood Count 7.5 T/CUMM (4-12)
[2019-10-05 06:46] LABS: Platelet Count 75 T/CUMM (130-400)
[2019-10-05] MEDS ORDERED: SODIUM CHLORIDE 0.9% 1,000 ML IV PRN (06:58)
[2019-10-05 07:07] LABS: Calcium 7.6 MG/DL (8.5-10.1); Osmolality,Calculated 284.5 MOS/KG (273-304)
[2019-10-05 07:10] LABS: Hypochromasia 1+; Platelet Estimate Decreased
[2019-10-05] MEDS: LOSARTAN 25 MG TABLET PO SCH (08:09)
[2019-10-05] MEDS: METOPROLOL TARTRATE 50 MG TABLET PO SCH ×2 (08:10→11:27)
[2019-10-05] MEDS: PANTOPRAZOLE 40 MG TABLET PO SCH (08:10)
[2019-10-05] MEDS: hydrALAZINE 25 MG TABLET PO SCH ×3 (08:10→20:36)
[2019-10-05] MEDS: CALCIUM ACETATE 667 MG CAPSULE PO SCH ×3 (08:10→16:24)
[2019-10-05] MEDS: DILTIAZEM CD 180 MG CAPSULE PO SCH (20:35)
[2019-10-05] MEDS: guaiFENesin/DM ER 600-30 MG TABLET PO PRN (20:36)
[2019-10-05] MEDS: ATORVASTATIN 40 MG TABLET PO SCH (20:36)
[2019-10-06 05:47] LABS: Basophils % 0.2 % (0.0-0.8); Eosinophils # 0.1 10*3/uL (0.0-0.87); Eosinophils % 1.5 % (0.00-10.9); Hemoglobin 8.6 GM/DL (12.0-16.0); Immature Granulocytes % 0.8 %; Immature Granulocytes Absolute 0.07 #; Lymphocytes # 0.8 10*3/uL (1.4-4.0); Lymphocytes % 8.9 % (21.3-54.2); Mean Corpuscular HGB Conc 31.9 GM/DL (32-36); Mean Corpuscular Volume 92.2 FL (87-102); Monocytes % 11.2 % (1.7-12.7); Neutrophils % 77.4 % (38.7-73.9); Platelet Count 81 T/CUMM (130-400); Red Blood Count 2.93 MC/CUMM (3.8-5.5); White Blood Count 9.1 T/CUMM (4-12)
[2019-10-06 06:07] LABS: Hypochromasia 1+; Ovalocytes Slight; Platelet Estimate Decreased
[2019-10-06] MEDS: PANTOPRAZOLE 40 MG TABLET PO SCH (08:36)
[2019-10-06] MEDS: CALCIUM ACETATE 667 MG CAPSULE PO SCH ×3 (08:36→16:51)
[2019-10-06] MEDS: METOPROLOL TARTRATE 50 MG TABLET PO SCH ×2 (08:38→11:15)
[2019-10-06] MEDS ORDERED: SODIUM CHLORIDE 0.9% 1,000 ML IV PRN (08:54)
[2019-10-06] MEDS: hydrALAZINE 25 MG TABLET PO SCH ×3 (10:06→20:23)
[2019-10-06] MEDS: LOSARTAN 25 MG TABLET PO SCH (10:06)
[2019-10-06] MEDS: DILTIAZEM CD 180 MG CAPSULE PO SCH (20:23)
[2019-10-06] MEDS: ATORVASTATIN 40 MG TABLET PO SCH (20:23)
[2019-10-07 04:21] VITALS: BP 114/57
[2019-10-07 05:47] LABS: Basophils % 0.1 % (0.0-0.8); Eosinophils # 0.2 10*3/uL (0.0-0.87); Eosinophils % 2.2 % (0.00-10.9); Hematocrit 28.4 VOL% (35.7-47.0); Immature Granulocytes % 0.2 %; Immature Granulocytes Absolute 0.02 #; Lymphocytes # 0.7 10*3/uL (1.4-4.0); Lymphocytes % 7.7 % (21.3-54.2); Mean Corpuscular HGB Conc 31.7 GM/DL (32-36); Mean Corpuscular Volume 91.9 FL (87-102); Mean Platelet Volume 12.2 FL (9.6-12.0); Neutrophils % 78.8 % (38.7-73.9); Red Blood Count 3.09 MC/CUMM (3.8-5.5); Red Cell Distribution Width 15.5 % (9.3-17.3)
[2019-10-07 05:52] LABS: Platelet Count 91 T/CUMM (130-400)
[2019-10-07 06:07] LABS: Calcium 8.3 MG/DL (8.5-10.1); Osmolality,Calculated 275.2 MOS/KG (273-304)
[2019-10-07] MEDS: PANTOPRAZOLE 40 MG TABLET PO SCH (10:14)
[2019-10-07] MEDS: hydrALAZINE 25 MG TABLET PO SCH (10:19)
[2019-10-07] MEDS: METOPROLOL TARTRATE 50 MG TABLET PO SCH (10:19)
[2019-10-07] MEDS: LOSARTAN 25 MG TABLET PO SCH (10:19)
[2019-10-07] MEDS: CALCIUM ACETATE 667 MG CAPSULE PO SCH (10:19)
== END 2019-10-07 11:00 | disposition home or self-care (01) | DRG 699 ==
LOC: N.ED 02:06 → N.EDINP 05:20 → SUATTDRO 05:20 → N.5E 05:42
PROVIDERS: ADMIT Internal Medicine Cardiovascular Disease; ATTEND Family Medicine

== ENCOUNTER 2020-01-21 05:35 | Inpatient (IN) ==
[2020-01-21] MEDS ORDERED: ALVIMOPAN 12 MG CAPSULE PO ONE (06:00)
[2020-01-21] MEDS ORDERED: cefTRIAXone 1,000 MG in SYRINGE 1 EACH IV ONE (06:00)
[2020-01-21 06:30] LABS: Basophils % 0.7 % (0.0-0.8); Eosinophils # 0.4 10*3/uL (0.0-0.87); Eosinophils % 6.5 % (0.00-10.9); Hematocrit 36.5 VOL% (35.7-47.0); Hemoglobin 11.5 GM/DL (12.0-16.0); Immature Granulocytes % 0.4 %; Immature Granulocytes Absolute 0.02 #; Lymphocytes # 0.9 10*3/uL (1.4-4.0); Mean Corpuscular HGB Conc 31.5 GM/DL (32-36); Mean Corpuscular Volume 91.5 FL (87-102); Mean Platelet Volume 11.3 FL (9.6-12.0); Monocytes % 11.5 % (1.7-12.7); Neutrophils % 63.9 % (38.7-73.9); Platelet Count 110 T/CUMM (130-400); Red Blood Count 3.99 MC/CUMM (3.8-5.5); White Blood Count 5.4 T/CUMM (4-12)
[2020-01-21 06:50] LABS: Calcium 9.2 MG/DL (8.5-10.1)
[2020-01-21] MEDS ORDERED: cefTRIAXone 1,000 MG VIAL ONE (07:00)
[2020-01-21] MEDS ORDERED: ALVIMOPAN 12 MG CAPSULE ONE (07:00)
[2020-01-21] MEDS ORDERED: SODIUM CHLORIDE 0.9% 250 ML IV SCH (07:30)
[2020-01-21] MEDS ORDERED: SUGAMMADEX 200 MG/2 ML VIAL IV ONE (10:00)
[2020-01-21] MEDS ORDERED: HYDROmorphone 2 MG/1 ML VIAL ONE (10:34)
[2020-01-21] MEDS ORDERED: hydrALAZINE 20 MG/1 ML VIAL ONE ×2 (10:34→10:43)
[2020-01-21] MEDS ORDERED: ONDANSETRON 4 MG/2 ML VIAL ONE ×2 (10:34→10:41)
[2020-01-21] MEDS ORDERED: propofoL 200 MG/20 ML VIAL IV ONE (10:40)
[2020-01-21] MEDS ORDERED: LIDOCAINE 2% 5 ML VIAL ONE (10:40)
[2020-01-21] MEDS ORDERED: DEXAMETHASONE 4 MG/1 ML VIAL ONE (10:41)
[2020-01-21] MEDS ORDERED: MIDAZOLAM 2 MG/2 ML VIAL ONE (10:41)
[2020-01-21] MEDS ORDERED: fentaNYL 250 MCG/5 ML VIAL ONE (10:41)
[2020-01-21] MEDS ORDERED: SODIUM CHLORIDE 0.9% 1,000 ML IV ONE (10:41)
[2020-01-21] MEDS ORDERED: SEVOFLURANE 1 UNIT/15 MINUTE INH ONE (10:42)
[2020-01-21] MEDS ORDERED: ALBUMIN 5% 12.5 GM/250 ML VIAL IV ONE (10:42)
[2020-01-21] MEDS ORDERED: PHENYLEPHRINE 1 MG/10 ML SYRINGE IV ONE (10:42)
[2020-01-21] MEDS ORDERED: GLYCOPYRROLATE 0.4 MG/2 ML VIAL ONE (10:42)
[2020-01-21] MEDS ORDERED: SUCCINYLCHOLINE 200 MG/10 ML VIAL ONE (10:42)
[2020-01-21] MEDS ORDERED: ROCURONIUM 100 MG/10 ML VIAL IV ONE (10:42)
[2020-01-21] MEDS ORDERED: hydrALAZINE 20 MG/1 ML VIAL IV ONE (10:54)
[2020-01-21] MEDS ORDERED: ONDANSETRON 4 MG/2 ML VIAL IV PRN (10:54)
[2020-01-21] MEDS: HYDROmorphone 2 MG/1 ML VIAL IV PRN ×4 (11:10→11:55)
[2020-01-21] MEDS ORDERED: FUROSEMIDE 40 MG/4 ML VIAL IV ONE (15:32)
[2020-01-21] MEDS: ceFAZolin 1,000 MG in SYRINGE 1 EACH IV SCH ×2 (16:50→21:22)
[2020-01-21] MEDS: CALCIUM ACETATE 667 MG CAPSULE PO SCH (18:35)
[2020-01-21] MEDS: hydrALAZINE 25 MG TABLET PO SCH (21:20)
[2020-01-21] MEDS: DILTIAZEM CD 180 MG CAPSULE PO SCH (21:21)
[2020-01-21] MEDS: ATORVASTATIN 40 MG TABLET PO SCH (21:22)
[2020-01-21] MEDS: ALVIMOPAN 12 MG CAPSULE PO SCH (21:22)
[2020-01-21] MEDS: SODIUM CHLORIDE 0.9% 1,000 ML IV SCH (21:23)
[2020-01-22] MEDS: ONDANSETRON 4 MG/2 ML VIAL IV PRN ×2 (00:05→09:36)
[2020-01-22] MEDS: ceFAZolin 1,000 MG in SYRINGE 1 EACH IV SCH (03:02)
[2020-01-22 05:11] LABS: Basophils % 0.1 % (0.0-0.8); Hematocrit 34.9 VOL% (35.7-47.0); Hemoglobin 11.4 GM/DL (12.0-16.0); Immature Granulocytes % 0.4 %; Immature Granulocytes Absolute 0.03 #; Lymphocytes # 0.9 10*3/uL (1.4-4.0); Lymphocytes % 11.2 % (21.3-54.2); Mean Corpuscular HGB Conc 32.7 GM/DL (32-36); Mean Corpuscular Volume 89.7 FL (87-102); Monocytes % 9.9 % (1.7-12.7); Neutrophils % 78.4 % (38.7-73.9); Platelet Count 90 T/CUMM (130-400); Red Blood Count 3.89 MC/CUMM (3.8-5.5); Red Cell Distribution Width 15.3 % (9.3-17.3); White Blood Count 8.1 T/CUMM (4-12)
[2020-01-22 05:31] LABS: Anisocytosis 1+; Hypochromasia 1+; Microcytosis 1+; Platelet Estimate Decreased
[2020-01-22] MEDS ORDERED: CALCIUM GLUCONATE 1,000 MG in SODIUM CHLORIDE 0.9% 100 ML IV ONE (06:23)
[2020-01-22] MEDS ORDERED: SODIUM POLYSTYRENE SULFATE 15 GM/60 ML BOTTLE PO ONE (06:25)
[2020-01-22] MEDS: hydrALAZINE 25 MG TABLET PO SCH ×3 (09:15→21:50)
[2020-01-22] MEDS: METOPROLOL TARTRATE 50 MG TABLET PO SCH ×2 (09:15→13:06)
[2020-01-22] MEDS: CALCIUM ACETATE 667 MG CAPSULE PO SCH ×3 (09:15→16:40)
[2020-01-22] MEDS: ALVIMOPAN 12 MG CAPSULE PO SCH ×2 (09:36→21:26)
[2020-01-22] MEDS ORDERED: PROMETHAZINE 25 MG/1 ML VIAL IM ONE (13:07)
[2020-01-22] MEDS: SODIUM CHLORIDE 0.9% 1,000 ML IV SCH (15:07)
[2020-01-22] MEDS: traMADol 50 MG TABLET PO SCH ×2 (16:40→21:26)
[2020-01-22] MEDS: ATORVASTATIN 40 MG TABLET PO SCH (21:26)
[2020-01-22] MEDS: DILTIAZEM CD 180 MG CAPSULE PO SCH (21:51)
[2020-01-23 07:19] LABS: Basophils % 0.2 % (0.0-0.8); Eosinophils # 0.1 10*3/uL (0.0-0.87); Eosinophils % 0.8 % (0.00-10.9); Hematocrit 33.3 VOL% (35.7-47.0); Hemoglobin 10.5 GM/DL (12.0-16.0); Immature Granulocytes % 0.2 %; Immature Granulocytes Absolute 0.02 #; Lymphocytes # 0.8 10*3/uL (1.4-4.0); Lymphocytes % 8.8 % (21.3-54.2); Mean Corpuscular HGB Conc 31.5 GM/DL (32-36); Mean Corpuscular Volume 91.7 FL (87-102); Mean Platelet Volume 12.3 FL (9.6-12.0); Monocytes % 10.2 % (1.7-12.7); Neutrophils % 79.8 % (38.7-73.9); Red Blood Count 3.63 MC/CUMM (3.8-5.5); Red Cell Distribution Width 15.1 % (9.3-17.3); White Blood Count 8.5 T/CUMM (4-12)
[2020-01-23 07:20] LABS: Platelet Count 69 T/CUMM (130-400)
[2020-01-23 07:43] LABS: Hypochromasia 1+; Microcytosis 1+
[2020-01-23 07:47] LABS: Ovalocytes Slight; Platelet Estimate Decreased
[2020-01-23 08:03] LABS: Calcium 8.2 MG/DL (8.5-10.1)
[2020-01-23] MEDS: METOPROLOL TARTRATE 50 MG TABLET PO SCH ×2 (08:44→12:09)
[2020-01-23] MEDS: hydrALAZINE 25 MG TABLET PO SCH ×3 (08:44→21:34)
[2020-01-23] MEDS: traMADol 50 MG TABLET PO SCH ×4 (08:44→21:34)
[2020-01-23] MEDS: CALCIUM ACETATE 667 MG CAPSULE PO SCH ×3 (08:44→18:13)
[2020-01-23] MEDS: ALVIMOPAN 12 MG CAPSULE PO SCH ×2 (08:44→21:33)
[2020-01-23] MEDS: ONDANSETRON 4 MG/2 ML VIAL IV PRN (09:29)
[2020-01-23] MEDS: DILTIAZEM CD 180 MG CAPSULE PO SCH (21:33)
[2020-01-23] MEDS: ATORVASTATIN 40 MG TABLET PO SCH (21:34)
[2020-01-24 06:16] LABS: Basophils % 0.2 % (0.0-0.8); Eosinophils # 0.2 10*3/uL (0.0-0.87); Eosinophils % 2.4 % (0.00-10.9); Hematocrit 33.2 VOL% (35.7-47.0); Hemoglobin 10.3 GM/DL (12.0-16.0); Immature Granulocytes % 0.8 %; Immature Granulocytes Absolute 0.07 #; Lymphocytes # 0.7 10*3/uL (1.4-4.0); Lymphocytes % 8.4 % (21.3-54.2); Mean Corpuscular Volume 94.9 FL (87-102); Mean Platelet Volume 12.2 FL (9.6-12.0); Monocytes % 9.1 % (1.7-12.7); Neutrophils % 79.1 % (38.7-73.9); White Blood Count 8.8 T/CUMM (4-12)
[2020-01-24 06:17] LABS: Platelet Count 73 T/CUMM (130-400)
[2020-01-24 06:42] LABS: Calcium 8.3 MG/DL (8.5-10.1); Osmolality,Calculated 276.1 MOS/KG (273-304)
[2020-01-24 08:24] VITALS: BP 127/57
[2020-01-24] MEDS: CALCIUM ACETATE 667 MG CAPSULE PO SCH (09:01)
[2020-01-24] MEDS: METOPROLOL TARTRATE 50 MG TABLET PO SCH (09:02)
[2020-01-24] MEDS: traMADol 50 MG TABLET PO SCH (09:02)
[2020-01-24] MEDS: hydrALAZINE 25 MG TABLET PO SCH (09:03)
[2020-01-24] MEDS: ALVIMOPAN 12 MG CAPSULE PO SCH (09:03)
== END 2020-01-24 10:30 | disposition home or self-care (01) | DRG 660 ==
LOC: N.OR 05:35 → N.SDSINP 05:37 → N.3E 13:49
PROVIDERS: ADMIT Internal Medicine; ATTEND Internal Medicine

== ENCOUNTER 2021-07-23 00:46 | Inpatient (IN) ==
[2021-07-23] MEDS ORDERED: ACETAMINOPHEN 500 MG TABLET PO STA (01:27)
[2021-07-23 02:34] LABS: Basophils % 0.1 % (0.0-0.8); Eosinophils # 0.1 10*3/uL (0.0-0.87); Eosinophils % 0.3 % (0.00-10.9); Hematocrit 26.2 VOL% (35.7-47.0); Hemoglobin 8.3 GM/DL (12.0-16.0); Immature Granulocytes % 1.2 %; Immature Granulocytes Absolute 0.21 #; Lymphocytes # 0.6 10*3/uL (1.4-4.0); Lymphocytes % 3.2 % (21.3-54.2); Mean Corpuscular HGB Conc 31.7 GM/DL (32-36); Mean Corpuscular Volume 88.8 FL (87-102); Mean Platelet Volume 10.8 FL (9.6-12.0); Monocytes % 7.3 % (1.7-12.7); Neutrophils % 87.9 % (38.7-73.9); Platelet Count 123 T/CUMM (130-400); Red Blood Count 2.95 MC/CUMM (3.8-5.5); Red Cell Distribution Width 15.2 % (9.3-17.3); White Blood Count 17.7 T/CUMM (4-12)
[2021-07-23] MEDS ORDERED: PIPERACILLIN/TAZOBACTAM 2,250 MG in SODIUM CHLORIDE 0.9% 100 ML IV STA (02:40)
[2021-07-23 02:52] LABS: Albumin 2.4 G/DL (3.4-5.0); Bilirubin,Total 0.9 MG/DL (0.20-1.00); Calcium 10.1 MG/DL (8.5-10.1); Potassium 2.8 MMOL/L (3.5-5.1); Total Protein 6.3 G/DL (6.4-8.2)
[2021-07-23 03:19] LABS: Lymphocytes 4 % (20-55); Segmented Neutrophils 91 % (50-85); Total Cells Counted 100
[2021-07-23 03:21] LABS: Hypochromasia 1+; Platelet Estimate Decreased
[2021-07-23 03:22] LABS: Microcytosis 1+
[2021-07-23] MEDS ORDERED: ONDANSETRON 4 MG/2 ML VIAL IV PRN (09:12)
[2021-07-23] MEDS ORDERED: ALBUTEROL/IPRATROPIUM 3 ML NEB RESP TX PRN (09:12)
[2021-07-23] MEDS: PANTOPRAZOLE 40 MG TABLET PO SCH (10:22)
[2021-07-23] MEDS: METOPROLOL TARTRATE 50 MG TABLET PO SCH ×3 (10:22→23:36)
[2021-07-23] MEDS ORDERED: BENZONATATE 100 MG CAPSULE PO PRN (11:22)
[2021-07-23] MEDS ORDERED: POTASSIUM CHLORIDE 20 MEQ TABLET PO ONE ×2 (11:29→16:35)
[2021-07-23] MEDS ORDERED: PIPERACILLIN/TAZOBACTAM 3.375 MG in SODIUM CHLORIDE 0.9% 100 ML IV SCH (14:30)
[2021-07-23] MEDS: PIPERACILLIN/TAZOBACTAM 3.375 MG in SODIUM CHLORIDE 0.9% 100 ML IV SCH (18:34)
[2021-07-23] MEDS: ACETAMINOPHEN 325 MG TABLET PO PRN (21:51)
[2021-07-23] MEDS: ATORVASTATIN 40 MG TABLET PO SCH (21:52)
[2021-07-24] MEDS: PIPERACILLIN/TAZOBACTAM 3.375 MG in SODIUM CHLORIDE 0.9% 100 ML IV SCH ×2 (05:06→18:32)
[2021-07-24 06:12] LABS: Basophils % 0.1 % (0.0-0.8); Eosinophils # 0.1 10*3/uL (0.0-0.87); Eosinophils % 0.8 % (0.00-10.9); Hematocrit 24.1 VOL% (35.7-47.0); Hemoglobin 7.6 GM/DL (12.0-16.0); Immature Granulocytes % 1.4 %; Immature Granulocytes Absolute 0.24 #; Lymphocytes # 0.6 10*3/uL (1.4-4.0); Lymphocytes % 3.3 % (21.3-54.2); Mean Corpuscular HGB Conc 31.5 GM/DL (32-36); Mean Corpuscular Volume 88.6 FL (87-102); Mean Platelet Volume 12.2 FL (9.6-12.0); Monocytes % 6.9 % (1.7-12.7); Neutrophils % 87.5 % (38.7-73.9); Platelet Count 100 T/CUMM (130-400); Red Blood Count 2.72 MC/CUMM (3.8-5.5); Red Cell Distribution Width 15.3 % (9.3-17.3); White Blood Count 17.1 T/CUMM (4-12)
[2021-07-24 06:31] LABS: Albumin 2.1 G/DL (3.4-5.0); Bilirubin,Total 0.8 MG/DL (0.20-1.00); Calcium 9.6 MG/DL (8.5-10.1); Osmolality,Calculated 277.7 MOS/KG (273-304); Potassium 3.5 MMOL/L (3.5-5.1); Total Protein 5.7 G/DL (6.4-8.2)
[2021-07-24 06:54] LABS: Band Neutrophils 2 % (0-10); Eosinophils 1 % (0-10); Hypochromasia 1+; Lymphocytes 5 % (20-55); Microcytosis 1+; Ovalocytes Few; Segmented Neutrophils 90 % (50-85); Total Cells Counted 100
[2021-07-24 06:55] LABS: Platelet Estimate Decreased; Target Cells Slight; Tear Drop Cells Slight
[2021-07-24] MEDS ORDERED: LOSARTAN 50 MG TABLET PO SCH (09:00)
[2021-07-24] MEDS: MULTIVITAMIN (CENTRUM) TABLET PO SCH (09:55)
[2021-07-24] MEDS: SERTRALINE 25 MG TABLET PO SCH (09:55)
[2021-07-24] MEDS: METOPROLOL TARTRATE 50 MG TABLET PO SCH ×3 (09:55→22:46)
[2021-07-24] MEDS: PANTOPRAZOLE 40 MG TABLET PO SCH (09:55)
[2021-07-24] MEDS ORDERED: SODIUM CHLORIDE 0.9% 1,000 ML IV PRN (19:22)
[2021-07-24] MEDS: ATORVASTATIN 40 MG TABLET PO SCH (22:46)
[2021-07-25] MEDS: PIPERACILLIN/TAZOBACTAM 3.375 MG in SODIUM CHLORIDE 0.9% 100 ML IV SCH (07:49)
[2021-07-25] MEDS: METOPROLOL TARTRATE 50 MG TABLET PO SCH ×4 (07:49→21:34)
[2021-07-25] MEDS: MULTIVITAMIN (CENTRUM) TABLET PO SCH (09:38)
[2021-07-25] MEDS: PANTOPRAZOLE 40 MG TABLET PO SCH (09:38)
[2021-07-25] MEDS: SERTRALINE 25 MG TABLET PO SCH (09:38)
[2021-07-25] MEDS: ceFAZolin 2,000 MG/50 ML DUPLEX IV SCH (20:20)
[2021-07-25] MEDS: ATORVASTATIN 40 MG TABLET PO SCH (21:34)
[2021-07-26] MEDS: ceFAZolin 2,000 MG/50 ML DUPLEX IV SCH ×3 (04:10→20:43)
[2021-07-26] MEDS: ACETAMINOPHEN 325 MG TABLET PO PRN ×2 (04:19→18:35)
[2021-07-26 06:37] LABS: Basophils % 0.1 % (0.0-0.8); Eosinophils % 0.1 % (0.00-10.9); Hematocrit 26.7 VOL% (35.7-47.0); Hemoglobin 8.4 GM/DL (12.0-16.0); Immature Granulocytes % 2.5 %; Immature Granulocytes Absolute 0.52 #; Lymphocytes # 0.8 10*3/uL (1.4-4.0); Lymphocytes % 3.6 % (21.3-54.2); Mean Corpuscular HGB Conc 31.5 GM/DL (32-36); Mean Platelet Volume 12.7 FL (9.6-12.0); Monocytes % 6.6 % (1.7-12.7); Neutrophils % 87.1 % (38.7-73.9); Platelet Count 106 T/CUMM (130-400); Red Cell Distribution Width 15.9 % (9.3-17.3); White Blood Count 20.8 T/CUMM (4-12)
[2021-07-26 06:57] LABS: Albumin 2.2 G/DL (3.4-5.0); Bilirubin,Total 0.7 MG/DL (0.20-1.00); Calcium 9.2 MG/DL (8.5-10.1); Osmolality,Calculated 279.4 MOS/KG (273-304); Potassium 3.3 MMOL/L (3.5-5.1); Total Protein 5.9 G/DL (6.4-8.2)
[2021-07-26 07:03] LABS: Band Neutrophils 1 % (0-10); Hypochromasia 1+; Lymphocytes 2 % (20-55); Microcytosis 1+; Platelet Estimate Decreased; Segmented Neutrophils 92 % (50-85); Total Cells Counted 100
[2021-07-26] MEDS: MULTIVITAMIN (CENTRUM) TABLET PO SCH (08:28)
[2021-07-26] MEDS: SERTRALINE 25 MG TABLET PO SCH (08:28)
[2021-07-26] MEDS: METOPROLOL TARTRATE 50 MG TABLET PO SCH ×2 (08:28→20:42)
[2021-07-26] MEDS: POTASSIUM CHLORIDE 20 MEQ TABLET PO PRN ×3 (08:29→12:40)
[2021-07-26] MEDS: PANTOPRAZOLE 40 MG TABLET PO SCH (08:29)
[2021-07-26] MEDS: methylPREDNISolone SOD SUC 40 MG/1 ML VIAL IV SCH (18:36)
[2021-07-26] MEDS: ATORVASTATIN 40 MG TABLET PO SCH (20:42)
[2021-07-27] MEDS: ceFAZolin 2,000 MG/50 ML DUPLEX IV SCH ×3 (05:03→21:06)
[2021-07-27] MEDS: methylPREDNISolone SOD SUC 40 MG/1 ML VIAL IV SCH ×2 (05:03→17:43)
[2021-07-27 05:37] LABS: Basophils % 0.2 % (0.0-0.8); Eosinophils % 0.2 % (0.00-10.9); Hemoglobin 9.2 GM/DL (12.0-16.0); Immature Granulocytes % 2.7 %; Immature Granulocytes Absolute 0.63 #; Lymphocytes # 0.7 10*3/uL (1.4-4.0); Lymphocytes % 2.9 % (21.3-54.2); Mean Corpuscular HGB Conc 31.7 GM/DL (32-36); Mean Corpuscular Volume 88.7 FL (87-102); Mean Platelet Volume 12.3 FL (9.6-12.0); Monocytes % 4.4 % (1.7-12.7); Neutrophils % 89.6 % (38.7-73.9); Platelet Count 111 T/CUMM (130-400); Red Blood Count 3.27 MC/CUMM (3.8-5.5); Red Cell Distribution Width 15.9 % (9.3-17.3); White Blood Count 23.1 T/CUMM (4-12)
[2021-07-27 06:04] LABS: Alanine Aminotransferase < 6 U/L (13-56); Albumin 2.3 G/DL (3.4-5.0); Alkaline Phosphatase 96 U/L (45-117); Aspartate Amino Transferase 29 U/L (0-37); Bilirubin,Total < 0.39 MG/DL (0.20-1.00); Blood Urea Nitrogen 27 MG/DL (7-18); Calcium 9.4 MG/DL (8.5-10.1); Carbon Dioxide 28 MMOL/L (21-32); Estimated Glom Filtration Rate 7 ML/MIN; Glucose 144 MG/DL (74-106); Osmolality,Calculated 280.8 MOS/KG (273-304); Potassium 4.2 MMOL/L (3.5-5.1); Sodium 137 MMOL/L (136-145); Total Protein 6.3 G/DL (6.4-8.2)
[2021-07-27 06:52] LABS: Band Neutrophils 1 % (0-10); Hypochromasia 2+; Lymphocytes 1 % (20-55); Microcytosis 1+; Segmented Neutrophils 93 % (50-85); Total Cells Counted 100
[2021-07-27 06:53] LABS: Ovalocytes Slight; Platelet Estimate Decreased; Tear Drop Cells Slight
[2021-07-27] MEDS: POTASSIUM PHOS/SOD PHOS POWDER 250 MG PACK PO SCH ×3 (09:00→21:06)
[2021-07-27] MEDS: MULTIVITAMIN (CENTRUM) TABLET PO SCH (13:20)
[2021-07-27] MEDS: METOPROLOL TARTRATE 50 MG TABLET PO SCH ×2 (13:20→21:06)
[2021-07-27] MEDS: SERTRALINE 25 MG TABLET PO SCH (13:21)
[2021-07-27] MEDS: PANTOPRAZOLE 40 MG TABLET PO SCH (13:21)
[2021-07-27] MEDS ORDERED: METOPROLOL TARTRATE 25 MG TABLET PO ONE (19:13)
[2021-07-27] MEDS: ATORVASTATIN 40 MG TABLET PO SCH (21:06)
[2021-07-28 05:16] LABS: Basophils # 0.1 10*3/uL (0.0-0.2); Basophils % 0.3 % (0.0-0.8); Hematocrit 28.1 VOL% (35.7-47.0); Hemoglobin 8.9 GM/DL (12.0-16.0); Immature Granulocytes Absolute 0.63 #; Lymphocytes # 0.6 10*3/uL (1.4-4.0); Mean Corpuscular HGB Conc 31.7 GM/DL (32-36); Mean Corpuscular Volume 88.6 FL (87-102); Monocytes % 5.9 % (1.7-12.7); NRBC # 0.03 10*3/uL; Neutrophils % 87.8 % (38.7-73.9); Platelet Count 120 T/CUMM (130-400); Red Blood Count 3.17 MC/CUMM (3.8-5.5); Red Cell Distribution Width 16.3 % (9.3-17.3); White Blood Count 21.2 T/CUMM (4-12)
[2021-07-28] MEDS: ceFAZolin 2,000 MG/50 ML DUPLEX IV SCH ×3 (05:20→20:34)
[2021-07-28] MEDS: methylPREDNISolone SOD SUC 40 MG/1 ML VIAL IV SCH ×2 (05:20→17:20)
[2021-07-28 05:37] LABS: Hypochromasia 1+; Lymphocytes 2 % (20-55); Microcytosis 1+; Nucleated Red Blood Cells 1 (0-5); Segmented Neutrophils 96 % (50-85); Total Cells Counted 100
[2021-07-28 05:42] LABS: Calcium 9.1 MG/DL (8.5-10.1); Osmolality,Calculated 287.3 MOS/KG (273-304); Potassium 4.2 MMOL/L (3.5-5.1)
[2021-07-28] MEDS ORDERED: ASPIRIN EC 325 MG TABLET PO SCH (09:00)
[2021-07-28] MEDS: MULTIVITAMIN (CENTRUM) TABLET PO SCH (09:50)
[2021-07-28] MEDS: POTASSIUM PHOS/SOD PHOS POWDER 250 MG PACK PO SCH ×3 (09:50→20:34)
[2021-07-28] MEDS: METOPROLOL TARTRATE 50 MG TABLET PO SCH ×2 (09:50→20:34)
[2021-07-28] MEDS: PANTOPRAZOLE 40 MG TABLET PO SCH (09:50)
[2021-07-28] MEDS: SERTRALINE 25 MG TABLET PO SCH (09:50)
[2021-07-28] MEDS: ATORVASTATIN 40 MG TABLET PO SCH (20:34)
[2021-07-29] MEDS: ceFAZolin 2,000 MG/50 ML DUPLEX IV SCH ×3 (03:48→20:57)
[2021-07-29] MEDS: methylPREDNISolone SOD SUC 40 MG/1 ML VIAL IV SCH ×2 (05:32→17:39)
[2021-07-29 05:48] LABS: Osmolality,Calculated 287.5 MOS/KG (273-304); Potassium 4.4 MMOL/L (3.5-5.1)
[2021-07-29] MEDS ORDERED: SODIUM CHLORIDE 0.9% 1,000 ML IV SCH (06:00)
[2021-07-29] MEDS ORDERED: ePHEDrine 50 MG/ML VIAL ONE (06:31)
[2021-07-29] MEDS ORDERED: LIDOCAINE 2% 5 ML VIAL ONE (06:31)
[2021-07-29] MEDS ORDERED: propofoL 200 MG/20 ML VIAL IV ONE (06:32)
[2021-07-29] MEDS ORDERED: PHENYLEPHRINE 1 MG/10 ML SYRINGE IV ONE (06:34)
[2021-07-29] MEDS: ASPIRIN EC 81 MG TABLET PO SCH (08:33)
[2021-07-29] MEDS: SERTRALINE 25 MG TABLET PO SCH (08:33)
[2021-07-29] MEDS: PANTOPRAZOLE 40 MG TABLET PO SCH (08:33)
[2021-07-29] MEDS: METOPROLOL TARTRATE 50 MG TABLET PO SCH ×2 (08:33→21:04)
[2021-07-29] MEDS: MULTIVITAMIN (CENTRUM) TABLET PO SCH (08:33)
[2021-07-29] MEDS: POTASSIUM PHOS/SOD PHOS POWDER 250 MG PACK PO SCH ×3 (08:34→21:02)
[2021-07-29] MEDS: APIXABAN 2.5 MG TABLET PO SCH ×2 (11:45→21:02)
[2021-07-29] MEDS ORDERED: GENTAMICIN INJ 80 MG/50 ML PREMIX IV SCH (17:00)
[2021-07-29] MEDS: ATORVASTATIN 40 MG TABLET PO SCH (21:09)
[2021-07-30] MEDS: ceFAZolin 2,000 MG/50 ML DUPLEX IV SCH ×3 (03:12→19:22)
[2021-07-30] MEDS: methylPREDNISolone SOD SUC 40 MG/1 ML VIAL IV SCH ×2 (05:20→17:35)
[2021-07-30 06:02] LABS: Basophils # 0.1 10*3/uL (0.0-0.2); Basophils % 0.3 % (0.0-0.8); Eosinophils # 0.1 10*3/uL (0.0-0.87); Eosinophils % 0.3 % (0.00-10.9); Hematocrit 27.7 VOL% (35.7-47.0); Hemoglobin 8.8 GM/DL (12.0-16.0); Immature Granulocytes % 5.2 %; Immature Granulocytes Absolute 0.92 #; Lymphocytes # 0.9 10*3/uL (1.4-4.0); Lymphocytes % 5.2 % (21.3-54.2); Mean Corpuscular HGB Conc 31.8 GM/DL (32-36); Mean Corpuscular Volume 88.8 FL (87-102); Mean Platelet Volume 12.2 FL (9.6-12.0); Monocytes % 6.1 % (1.7-12.7); NRBC # 0.07 10*3/uL; Neutrophils % 82.9 % (38.7-73.9); Platelet Count 139 T/CUMM (130-400); Red Blood Count 3.12 MC/CUMM (3.8-5.5); Red Cell Distribution Width 16.6 % (9.3-17.3); White Blood Count 17.8 T/CUMM (4-12)
[2021-07-30 06:26] LABS: Elliptocytes Few; Eosinophils 1 % (0-10); Hypochromasia 2+; Lymphocytes 7 % (20-55); Platelet Estimate Adequate
[2021-07-30 06:27] LABS: Stomatocytes Slight
[2021-07-30 06:33] LABS: Calcium 8.6 MG/DL (8.5-10.1); Osmolality,Calculated 280.7 MOS/KG (273-304); Potassium 4.1 MMOL/L (3.5-5.1)
[2021-07-30 07:00] LABS: Segmented Neutrophils 85 % (50-85); Total Cells Counted 100
[2021-07-30] MEDS: MULTIVITAMIN (CENTRUM) TABLET PO SCH (09:44)
[2021-07-30] MEDS: METOPROLOL TARTRATE 50 MG TABLET PO SCH ×2 (09:45→20:48)
[2021-07-30] MEDS: POTASSIUM PHOS/SOD PHOS POWDER 250 MG PACK PO SCH ×3 (09:45→21:29)
[2021-07-30] MEDS: ASPIRIN EC 81 MG TABLET PO SCH (09:45)
[2021-07-30] MEDS: SERTRALINE 25 MG TABLET PO SCH (09:45)
[2021-07-30] MEDS: APIXABAN 2.5 MG TABLET PO SCH ×2 (09:45→21:29)
[2021-07-30] MEDS: PANTOPRAZOLE 40 MG TABLET PO SCH (09:45)
[2021-07-30] MEDS: ATORVASTATIN 40 MG TABLET PO SCH (21:29)
[2021-07-31 06:32] LABS: Basophils # 0.1 10*3/uL (0.0-0.2); Basophils % 0.5 % (0.0-0.8); Eosinophils # 0.1 10*3/uL (0.0-0.87); Eosinophils % 0.6 % (0.00-10.9); Hematocrit 27.4 VOL% (35.7-47.0); Hemoglobin 8.7 GM/DL (12.0-16.0); Immature Granulocytes % 6.4 %; Immature Granulocytes Absolute 1.09 #; Lymphocytes # 0.9 10*3/uL (1.4-4.0); Mean Corpuscular HGB Conc 31.8 GM/DL (32-36); Mean Corpuscular Volume 88.1 FL (87-102); Mean Platelet Volume 12.6 FL (9.6-12.0); Monocytes % 5.3 % (1.7-12.7); NRBC # 0.03 10*3/uL; Neutrophils % 82.2 % (38.7-73.9); Platelet Count 123 T/CUMM (130-400); Red Blood Count 3.11 MC/CUMM (3.8-5.5); Red Cell Distribution Width 16.6 % (9.3-17.3); White Blood Count 17.1 T/CUMM (4-12)
[2021-07-31] MEDS: ceFAZolin 2,000 MG/50 ML DUPLEX IV SCH ×3 (06:41→23:50)
[2021-07-31] MEDS: methylPREDNISolone SOD SUC 40 MG/1 ML VIAL IV SCH ×2 (06:42→17:04)
[2021-07-31 07:08] LABS: Calcium 8.2 MG/DL (8.5-10.1); Osmolality,Calculated 292.3 MOS/KG (273-304); Potassium 4.2 MMOL/L (3.5-5.1)
[2021-07-31 07:25] LABS: Band Neutrophils 2 % (0-10); Eosinophils 2 % (0-10); Hypochromasia 2+; Lymphocytes 7 % (20-55); Metamyelocytes 1 %; Platelet Estimate Adequate; Polychromasia Slight; Segmented Neutrophils 82 % (50-85); Target Cells Few; Total Cells Counted 100
[2021-07-31] MEDS: PANTOPRAZOLE 40 MG TABLET PO SCH (10:11)
[2021-07-31] MEDS: APIXABAN 2.5 MG TABLET PO SCH ×2 (10:11→21:40)
[2021-07-31] MEDS: MULTIVITAMIN (CENTRUM) TABLET PO SCH (10:11)
[2021-07-31] MEDS: POTASSIUM PHOS/SOD PHOS POWDER 250 MG PACK PO SCH ×3 (10:11→21:39)
[2021-07-31] MEDS: ASPIRIN EC 81 MG TABLET PO SCH (10:11)
[2021-07-31] MEDS: METOPROLOL TARTRATE 50 MG TABLET PO SCH ×2 (10:11→20:07)
[2021-07-31] MEDS: SERTRALINE 25 MG TABLET PO SCH (10:12)
[2021-07-31] MEDS: ATORVASTATIN 40 MG TABLET PO SCH (21:40)
[2021-08-01 04:41] LABS: Basophils # 0.1 10*3/uL (0.0-0.2); Basophils % 0.4 % (0.0-0.8); Eosinophils # 0.1 10*3/uL (0.0-0.87); Eosinophils % 0.5 % (0.00-10.9); Hematocrit 25.7 VOL% (35.7-47.0); Hemoglobin 8.4 GM/DL (12.0-16.0); Immature Granulocytes % 5.3 %; Immature Granulocytes Absolute 1.07 #; Lymphocytes # 0.9 10*3/uL (1.4-4.0); Lymphocytes % 4.5 % (21.3-54.2); Mean Corpuscular HGB Conc 32.7 GM/DL (32-36); Mean Platelet Volume 12.9 FL (9.6-12.0); Monocytes % 5.3 % (1.7-12.7); NRBC # 0.04 10*3/uL; Platelet Count 118 T/CUMM (130-400); Red Blood Count 2.92 MC/CUMM (3.8-5.5); Red Cell Distribution Width 16.8 % (9.3-17.3); White Blood Count 20.3 T/CUMM (4-12)
[2021-08-01 05:03] LABS: Band Neutrophils 1 % (0-10); Eosinophils 1 % (0-10); Hypochromasia 1+; Lymphocytes 5 % (20-55); Microcytosis 1+; Segmented Neutrophils 87 % (50-85); Total Cells Counted 100
[2021-08-01 05:05] LABS: Calcium 7.6 MG/DL (8.5-10.1); Osmolality,Calculated 295.4 MOS/KG (273-304); Potassium 4.6 MMOL/L (3.5-5.1)
[2021-08-01] MEDS: methylPREDNISolone SOD SUC 40 MG/1 ML VIAL IV SCH (05:37)
[2021-08-01] MEDS: ceFAZolin 2,000 MG/50 ML DUPLEX IV SCH ×2 (07:30→15:49)
[2021-08-01] MEDS: PANTOPRAZOLE 40 MG TABLET PO SCH (14:14)
[2021-08-01] MEDS: APIXABAN 2.5 MG TABLET PO SCH (14:14)
[2021-08-01] MEDS: SERTRALINE 25 MG TABLET PO SCH (14:14)
[2021-08-01] MEDS: MULTIVITAMIN (CENTRUM) TABLET PO SCH (14:14)
[2021-08-01] MEDS: ASPIRIN EC 81 MG TABLET PO SCH (14:14)
[2021-08-01] MEDS: METOPROLOL TARTRATE 50 MG TABLET PO SCH (14:14)
[2021-08-01] MEDS: POTASSIUM PHOS/SOD PHOS POWDER 250 MG PACK PO SCH ×2 (14:17→14:35)
[2021-08-01 16:44] VITALS: BP 138/78
== END 2021-08-01 19:30 | DRG 193 ==
LOC: EDBD → EDUNIT# → N.ED 00:46 → N.EDINP 03:03 → N.TELEN 03:54
PROVIDERS: ADMIT Internal Medicine; ATTEND Internal Medicine

== ENCOUNTER 2021-08-24 11:05 | Inpatient (IN) ==
[2021-08-24] MEDS ORDERED: ONDANSETRON 4 MG/2 ML VIAL IV STA (11:17)
[2021-08-24] MEDS ORDERED: PROMETHAZINE 25 MG/1 ML VIAL IM STA (11:17)
[2021-08-24 11:58] LABS: ABG Base Excess -8.4 MMOL/L (-2.5-2.5); ABG HCO3 17.6 MMOL/L (20-26); ABG Oxygen Saturation 99.8 % (95-100); ABG PH 7.318 (7.35-7.45)
[2021-08-24 12:05] LABS: Hematocrit 23.4 VOL% (35.7-47.0); Hemoglobin 7.5 GM/DL (12.0-16.0); Immature Granulocytes % 0.9 %; Immature Granulocytes Absolute 0.06 #; Lymphocytes # 0.2 10*3/uL (1.4-4.0); Mean Corpuscular HGB Conc 32.1 GM/DL (32-36); Mean Corpuscular Volume 93.6 FL (87-102); Monocytes % 6.6 % (1.7-12.7); NRBC # 1.99 10*3/uL; Neutrophils % 89.5 % (38.7-73.9); Platelet Count 76 T/CUMM (130-400); Red Cell Distribution Width 19.9 % (9.3-17.3); White Blood Count 6.7 T/CUMM (4-12)
[2021-08-24 12:46] LABS: Band Neutrophils 10 % (0-10); Lymphocytes 2 % (20-55); Nucleated Red Blood Cells 41 (0-5); Segmented Neutrophils 85 % (50-85); Total Cells Counted 100
[2021-08-24 12:47] LABS: Anisocytosis 3+; Macrocytosis 3+; Microcytosis 2+; Platelet Estimate Decreased; Poikilocytosis 1+; Polychromasia 2+; Schistocytes 1+; Target Cells Few
[2021-08-24 12:48] LABS: Burr Cells Few
[2021-08-24 13:13] LABS: Potassium 5.4 MMOL/L (3.5-5.1)
[2021-08-24 13:14] LABS: Albumin 2.6 G/DL (3.4-5.0); Bilirubin,Total 0.9 MG/DL (0.20-1.00); Osmolality,Calculated 290.1 MOS/KG (273-304); Total Protein 5.6 G/DL (6.4-8.2)
[2021-08-24 13:17] LABS: Thyroid Stimulating Hormone 2.63 uIU/ml (0.358-3.74)
[2021-08-24 13:32] LABS: Partial Thromboplastin Time 50.9 SECS (23.8-32.1)
[2021-08-24 13:33] LABS: INR 11.2
[2021-08-24] MEDS ORDERED: ACETAMINOPHEN 325 MG TABLET PO PRN (18:44)
[2021-08-24] MEDS: DOCUSATE SODIUM 100 MG CAPSULE PO SCH (20:43)
[2021-08-25 07:31] LABS: Basophils % 0.1 % (0.0-0.8); Hematocrit 24.6 VOL% (35.7-47.0); Hemoglobin 7.7 GM/DL (12.0-16.0); Immature Granulocytes % 1.1 %; Lymphocytes # 0.6 10*3/uL (1.4-4.0); Lymphocytes % 6.4 % (21.3-54.2); Mean Corpuscular HGB Conc 31.3 GM/DL (32-36); Mean Corpuscular Volume 96.1 FL (87-102); Monocytes % 6.6 % (1.7-12.7); Neutrophils % 85.8 % (38.7-73.9); Platelet Count 66 T/CUMM (130-400); Red Blood Count 2.56 MC/CUMM (3.8-5.5); Red Cell Distribution Width 20.3 % (9.3-17.3); White Blood Count 9.1 T/CUMM (4-12)
[2021-08-25 07:48] LABS: Alanine Aminotransferase < 6 U/L (13-56); Albumin 2.6 G/DL (3.4-5.0); Alkaline Phosphatase 100 U/L (45-117); Aspartate Amino Transferase 124 U/L (0-37); Blood Urea Nitrogen 90 MG/DL (7-18); Calcium 8.3 MG/DL (8.5-10.1); Carbon Dioxide 19 MMOL/L (21-32); Estimated Glom Filtration Rate 5 ML/MIN; Glucose 92 MG/DL (74-106); Sodium 136 MMOL/L (136-145); Total Protein 5.9 G/DL (6.4-8.2); Uric Acid 11.1 MG/DL (2.6-6.0)
[2021-08-25 07:54] LABS: Potassium 6.4 MMOL/L (3.5-5.1)
[2021-08-25 07:55] LABS: PT Patient Result 96.1 SECS (10.5-12.0)
[2021-08-25 07:59] LABS: INR 10.1
[2021-08-25] MEDS ORDERED: SODIUM POLYSTYRENE SULFATE 15 GM/60 ML BOTTLE PO STA (08:18)
[2021-08-25 08:27] LABS: Platelet Estimate Decreased
[2021-08-25 08:28] LABS: Acanthocytes Few; Anisocytosis 3+; Macrocytosis 1+; Poikilocytosis 1+; Polychromasia Slight; Target Cells Few
[2021-08-25] MEDS: DOCUSATE SODIUM 100 MG CAPSULE PO SCH ×2 (08:59→21:10)
[2021-08-25] MEDS ORDERED: PANTOPRAZOLE 40 MG TABLET PO SCH (09:00)
[2021-08-25] MEDS ORDERED: APIXABAN 2.5 MG TABLET PO SCH (09:30)
[2021-08-25] MEDS: ASCORBIC ACID 500 MG TABLET PO SCH ×2 (09:49→21:10)
[2021-08-25] MEDS: ASPIRIN EC 81 MG TABLET PO SCH (09:49)
[2021-08-25] MEDS: METOPROLOL TARTRATE 25 MG TABLET PO SCH ×2 (10:38→21:10)
[2021-08-25] MEDS: VERAPAMIL SR 120 MG TABLET PO SCH (10:44)
[2021-08-25] MEDS ORDERED: SODIUM CHLORIDE 0.9% 250 ML IV ONE ×2 (17:30→23:33)
[2021-08-25] MEDS ORDERED: ATORVASTATIN 40 MG TABLET PO SCH (21:00)
[2021-08-25] MEDS: DESITIN 4OZ/NYSTATIN 15 GRAM MIXTURE PASTE TOP SCH (21:11)
[2021-08-25] MEDS: ONDANSETRON 4 MG/2 ML VIAL IV PRN (21:12)
[2021-08-26] MEDS: DOCUSATE SODIUM 100 MG CAPSULE PO SCH ×2 (08:19→20:53)
[2021-08-26] MEDS: ASPIRIN EC 81 MG TABLET PO SCH (08:19)
[2021-08-26] MEDS: ASCORBIC ACID 500 MG TABLET PO SCH ×2 (08:19→20:54)
[2021-08-26] MEDS: FAMOTIDINE 20 MG TABLET PO SCH (08:19)
[2021-08-26] MEDS: DESITIN 4OZ/NYSTATIN 15 GRAM MIXTURE PASTE TOP SCH ×2 (08:20→20:54)
[2021-08-26] MEDS: VERAPAMIL SR 120 MG TABLET PO SCH (08:20)
[2021-08-26] MEDS: ACETAMINOPHEN 325 MG TABLET PO SCH ×3 (08:20→20:54)
[2021-08-26 09:48] LABS: Hematocrit 18.3 VOL% (35.7-47.0); Red Blood Count 1.86 MC/CUMM (3.8-5.5); White Blood Count 8.3 T/CUMM (4-12)
[2021-08-26 09:49] LABS: Eosinophils % 0.4 % (0.00-10.9); Immature Granulocytes % 1.6 %; Immature Granulocytes Absolute 0.13 #; Lymphocytes # 0.5 10*3/uL (1.4-4.0); Lymphocytes % 5.4 % (21.3-54.2); Mean Corpuscular HGB Conc 30.6 GM/DL (32-36); Mean Corpuscular Volume 98.4 FL (87-102); Monocytes % 5.4 % (1.7-12.7); NRBC # 1.28 10*3/uL; Neutrophils % 87.2 % (38.7-73.9); Red Cell Distribution Width 21.1 % (9.3-17.3)
[2021-08-26 09:52] LABS: Hemoglobin 5.6 GM/DL (12.0-16.0)
[2021-08-26 09:53] LABS: Platelet Count 53 T/CUMM (130-400)
[2021-08-26] MEDS ORDERED: SODIUM CHLORIDE 0.9% 1,000 ML IV PRN (10:00)
[2021-08-26 10:02] LABS: PT Patient Result 104.9 SECS (10.5-12.0)
[2021-08-26 10:04] LABS: Alanine Aminotransferase < 9 U/L (13-56); Alkaline Phosphatase 97 U/L (45-117); Aspartate Amino Transferase 87 U/L (0-37); Blood Urea Nitrogen 26 MG/DL (7-18); Calcium 7.2 MG/DL (8.5-10.1); Carbon Dioxide 28 MMOL/L (21-32); Estimated Glom Filtration Rate 21 ML/MIN; Glucose 91 MG/DL (74-106); INR 11.1; Osmolality,Calculated 285.3 MOS/KG (273-304); Potassium 3.7 MMOL/L (3.5-5.1); Sodium 141 MMOL/L (136-145); Total Protein 4.3 G/DL (6.4-8.2)
[2021-08-26 10:40] LABS: % Iron Saturation 101.6 % (18-50); Band Neutrophils 1 % (0-10); Eosinophils 1 % (0-10); Hypochromasia 2+; Lymphocytes 4 % (20-55); Microcytosis 1+; Nucleated Red Blood Cells 21 (0-5); Platelet Estimate Decreased; Segmented Neutrophils 90 % (50-85); Total Cells Counted 100
[2021-08-26] MEDS: METOPROLOL TARTRATE 25 MG TABLET PO SCH ×2 (10:55→20:54)
[2021-08-26 11:03] LABS: Ferritin 6112.4 ng/mL (8-252)
[2021-08-26 11:12] LABS: Hepatitis B Core IgM Quant 0.14 Index; Hepatitis B Surface Ag Quant < 0.10 Index; Hepatitis B Surface Ag Result Non-Reactive (NonReactive); Hepatitis C Virus Ab Quant 0.04 Index; Hepatitis C Virus Ab Result Non-Reactive (NonReactive)
[2021-08-26] MEDS ORDERED: DEXTROSE 10% 1,000 ML IV PRN (17:00)
[2021-08-26] MEDS ORDERED: ZINC/COPPER/MANGANESE/SELENIUM 1 ML, MULTIVITAMIN INJ 10 ML in AMINO ACIDS/DEXT/LYTES 4... IV SCH (17:00)
[2021-08-27 00:39] LABS: Hematocrit 28.2 VOL% (35.7-47.0); Hemoglobin 8.7 GM/DL (12.0-16.0)
[2021-08-27] MEDS: DESITIN 4OZ/NYSTATIN 15 GRAM MIXTURE PASTE TOP SCH ×2 (07:13→21:38)
[2021-08-27 07:38] LABS: INR 3.1; PT Patient Result 31.9 SECS (10.5-12.0)
[2021-08-27 08:05] LABS: Calcium 7.9 MG/DL (8.5-10.1); Osmolality,Calculated 294.5 MOS/KG (273-304); Potassium 4.9 MMOL/L (3.5-5.1)
[2021-08-27 08:09] LABS: Albumin 2.4 G/DL (3.4-5.0); Bilirubin,Total 0.9 MG/DL (0.20-1.00); Calcium 7.8 MG/DL (8.5-10.1); Osmolality,Calculated 296.5 MOS/KG (273-304); Potassium 5.2 MMOL/L (3.5-5.1); Total Protein 5.3 G/DL (6.4-8.2)
[2021-08-27 08:38] LABS: Basophils % 0.1 % (0.0-0.8); Eosinophils # 0.1 10*3/uL (0.0-0.87); Eosinophils % 0.8 % (0.00-10.9); Hematocrit 29.1 VOL% (35.7-47.0); Immature Granulocytes % 1.7 %; Immature Granulocytes Absolute 0.12 #; Lymphocytes # 0.1 10*3/uL (1.4-4.0); Lymphocytes % 1.8 % (21.3-54.2); Mean Corpuscular HGB Conc 30.9 GM/DL (32-36); Monocytes % 5.4 % (1.7-12.7); NRBC # 0.85 10*3/uL; Neutrophils % 90.2 % (38.7-73.9); Platelet Count 40 T/CUMM (130-400); Red Cell Distribution Width 20.1 % (9.3-17.3); White Blood Count 7.2 T/CUMM (4-12)
[2021-08-27] MEDS: ASCORBIC ACID 500 MG TABLET PO SCH ×2 (09:09→21:38)
[2021-08-27] MEDS: FAMOTIDINE 20 MG TABLET PO SCH (09:09)
[2021-08-27] MEDS: METOPROLOL TARTRATE 25 MG TABLET PO SCH ×2 (09:09→21:38)
[2021-08-27] MEDS: VERAPAMIL SR 120 MG TABLET PO SCH (09:09)
[2021-08-27] MEDS: DOCUSATE SODIUM 100 MG CAPSULE PO SCH ×2 (09:09→21:38)
[2021-08-27] MEDS: ASPIRIN EC 81 MG TABLET PO SCH (09:10)
[2021-08-27] MEDS: ACETAMINOPHEN 325 MG TABLET PO SCH ×3 (09:35→21:38)
[2021-08-27 10:01] LABS: Band Neutrophils 1 % (0-10); Lymphocytes 5 % (20-55); Nucleated Red Blood Cells 6 (0-5); Segmented Neutrophils 93 % (50-85); Target Cells Few; Tear Drop Cells Few; Total Cells Counted 100
[2021-08-27 10:02] LABS: Helmet Cells Slight; Macrocytosis Slight; Ovalocytes Few; Platelet Estimate Decreased; Polychromasia Slight
[2021-08-27] MEDS: FAT EMULSION 20% 250 ML IV SCH (14:43)
[2021-08-27] MEDS: ZINC/COPPER/MANGANESE/SELENIUM 1 ML, MULTIVITAMIN INJ 10 ML in AMINO ACIDS/DEXT/LYTES 4... IV SCH (18:03)
[2021-08-28] MEDS: VERAPAMIL SR 120 MG TABLET PO SCH (08:44)
[2021-08-28] MEDS: ASCORBIC ACID 500 MG TABLET PO SCH ×2 (08:44→20:48)
[2021-08-28] MEDS: DOCUSATE SODIUM 100 MG CAPSULE PO SCH ×2 (08:44→20:49)
[2021-08-28] MEDS: ASPIRIN EC 81 MG TABLET PO SCH (08:44)
[2021-08-28] MEDS: DESITIN 4OZ/NYSTATIN 15 GRAM MIXTURE PASTE TOP SCH ×2 (08:45→20:49)
[2021-08-28] MEDS: ACETAMINOPHEN 325 MG TABLET PO SCH ×3 (08:45→20:48)
[2021-08-28] MEDS: METOPROLOL TARTRATE 25 MG TABLET PO SCH (08:46)
[2021-08-28] MEDS: FAMOTIDINE 20 MG TABLET PO SCH (08:46)
[2021-08-28 13:59] LABS: Albumin 5.4 G/DL (3.4-5.0); Bilirubin,Total 0.8 MG/DL (0.20-1.00); Calcium 7.8 MG/DL (8.5-10.1); Osmolality,Calculated 294.1 MOS/KG (273-304); Potassium 4.7 MMOL/L (3.5-5.1)
[2021-08-28 14:51] LABS: INR 1.2
[2021-08-28] MEDS ORDERED: cefTRIAXone 1,000 MG in SODIUM CHLORIDE 0.9% 100 ML IV SCH (15:00)
[2021-08-28] MEDS: cefTRIAXone 1,000 MG VIAL IM SCH (17:35)
[2021-08-28] MEDS: ZINC/COPPER/MANGANESE/SELENIUM 1 ML, MULTIVITAMIN INJ 10 ML in AMINO ACIDS/DEXT/LYTES 4... IV SCH (23:29)
[2021-08-29] MEDS ORDERED: HEPARIN 5,000 UNIT/1 ML VIAL SUBCUT ONE (03:30)
[2021-08-29 05:12] LABS: Basophils % 0.2 % (0.0-0.8); Eosinophils % 0.1 % (0.00-10.9); Hematocrit 26.6 VOL% (35.7-47.0); Hemoglobin 8.3 GM/DL (12.0-16.0); Immature Granulocytes % 2.7 %; Immature Granulocytes Absolute 0.32 #; Lymphocytes # 0.6 10*3/uL (1.4-4.0); Lymphocytes % 4.9 % (21.3-54.2); Mean Corpuscular HGB Conc 31.2 GM/DL (32-36); Monocytes % 8.5 % (1.7-12.7); NRBC # 0.23 10*3/uL; Neutrophils % 83.6 % (38.7-73.9); Platelet Count 49 T/CUMM (130-400); Red Cell Distribution Width 21.3 % (9.3-17.3); White Blood Count 11.7 T/CUMM (4-12)
[2021-08-29 05:21] LABS: INR 1.4; PT Patient Result 15.6 SECS (10.5-12.0)
[2021-08-29 05:35] LABS: Band Neutrophils 5 % (0-10); Hypochromasia Slight; Lymphocytes 3 % (20-55); Microcytosis Slight; Platelet Estimate Decreased; Segmented Neutrophils 86 % (50-85); Total Cells Counted 100
[2021-08-29 05:50] LABS: Calcium 7.7 MG/DL (8.5-10.1); Potassium 5.3 MMOL/L (3.5-5.1)
[2021-08-29] MEDS ORDERED: HYDROmorphone 2 MG/1 ML VIAL IV ONE (08:38)
[2021-08-29] MEDS: FAT EMULSION 20% 250 ML IV SCH (09:18)
[2021-08-29] MEDS: VERAPAMIL SR 120 MG TABLET PO SCH (09:18)
[2021-08-29] MEDS: SEVELAMER CARBONATE 800 MG TABLET PO SCH ×3 (12:03→16:20)
[2021-08-29] MEDS: DOCUSATE SODIUM 100 MG CAPSULE PO SCH ×2 (12:08→21:49)
[2021-08-29] MEDS: ASPIRIN EC 81 MG TABLET PO SCH (12:08)
[2021-08-29] MEDS: ASCORBIC ACID 500 MG TABLET PO SCH ×2 (12:09→21:50)
[2021-08-29] MEDS: ACETAMINOPHEN 325 MG TABLET PO SCH ×3 (12:09→21:50)
[2021-08-29] MEDS: FAMOTIDINE 20 MG TABLET PO SCH (12:09)
[2021-08-29] MEDS: METOPROLOL TARTRATE 25 MG TABLET PO SCH ×3 (12:10→20:47)
[2021-08-29] MEDS: DESITIN 4OZ/NYSTATIN 15 GRAM MIXTURE PASTE TOP SCH ×2 (12:10→21:49)
[2021-08-29] MEDS: cefTRIAXone 1,000 MG VIAL IM SCH (16:21)
[2021-08-30] MEDS ORDERED: SODIUM CHLORIDE 0.9% 1,000 ML IV SCH (08:00)
[2021-08-30] MEDS: MORPHINE 2 MG/1 ML SYRINGE IV PRN ×2 (08:10→11:02)
[2021-08-30 08:30] LABS: Basophils % 0.2 % (0.0-0.8); Eosinophils # 0.1 10*3/uL (0.0-0.87); Eosinophils % 0.4 % (0.00-10.9); Hemoglobin 8.5 GM/DL (12.0-16.0); Immature Granulocytes Absolute 0.13 #; Lymphocytes # 0.6 10*3/uL (1.4-4.0); Lymphocytes % 4.2 % (21.3-54.2); Mean Corpuscular HGB Conc 31.5 GM/DL (32-36); Mean Corpuscular Volume 94.7 FL (87-102); Monocytes % 6.1 % (1.7-12.7); NRBC # 0.29 10*3/uL; Neutrophils % 88.1 % (38.7-73.9); Red Blood Count 2.85 MC/CUMM (3.8-5.5); Red Cell Distribution Width 21.8 % (9.3-17.3); White Blood Count 13.2 T/CUMM (4-12)
[2021-08-30 08:34] LABS: Platelet Count 32 T/CUMM (130-400)
[2021-08-30 08:50] LABS: Band Neutrophils 2 % (0-10); Hypochromasia 1+; Lymphocytes 2 % (20-55); Microcytosis 1+; Platelet Estimate Decreased; Segmented Neutrophils 92 % (50-85); Total Cells Counted 100
[2021-08-30] MEDS: METOPROLOL TARTRATE 25 MG TABLET PO SCH (09:30)
[2021-08-30] MEDS: DOCUSATE SODIUM 100 MG CAPSULE PO SCH ×2 (09:31→21:05)
[2021-08-30] MEDS: ACETAMINOPHEN 325 MG TABLET PO SCH ×3 (09:31→21:00)
[2021-08-30] MEDS: ASPIRIN EC 81 MG TABLET PO SCH (09:31)
[2021-08-30] MEDS: DESITIN 4OZ/NYSTATIN 15 GRAM MIXTURE PASTE TOP SCH ×2 (09:31→21:05)
[2021-08-30] MEDS: methylPREDNISolone SOD SUC 40 MG/1 ML VIAL IV SCH (18:38)
[2021-08-31] MEDS: methylPREDNISolone SOD SUC 40 MG/1 ML VIAL IV SCH ×3 (02:43→18:03)
[2021-08-31] MEDS: DESITIN 4OZ/NYSTATIN 15 GRAM MIXTURE PASTE TOP SCH ×2 (08:45→21:22)
[2021-08-31] MEDS: LIDOCAINE 5% PATCH TRANSDERM SCH (08:45)
[2021-08-31] MEDS: ASPIRIN EC 81 MG TABLET PO SCH (08:45)
[2021-08-31] MEDS: ACETAMINOPHEN 325 MG TABLET PO SCH ×3 (08:45→21:22)
[2021-08-31] MEDS: MORPHINE 2 MG/1 ML SYRINGE IV PRN ×3 (09:10→16:22)
[2021-08-31] MEDS: DOCUSATE SODIUM 100 MG CAPSULE PO SCH ×2 (09:22→22:38)
[2021-08-31] MEDS: METOPROLOL TARTRATE 25 MG TABLET PO SCH (12:47)
[2021-09-01] MEDS: methylPREDNISolone SOD SUC 40 MG/1 ML VIAL IV SCH ×3 (02:10→19:00)
[2021-09-01] MEDS: ACETAMINOPHEN 325 MG TABLET PO SCH ×3 (08:57→22:33)
[2021-09-01] MEDS: ASPIRIN EC 81 MG TABLET PO SCH (08:58)
[2021-09-01] MEDS: DOCUSATE SODIUM 100 MG CAPSULE PO SCH ×2 (08:59→22:34)
[2021-09-01] MEDS: LIDOCAINE 5% PATCH TRANSDERM SCH (08:59)
[2021-09-01] MEDS: METOPROLOL TARTRATE 25 MG TABLET PO SCH (08:59)
[2021-09-01] MEDS: DESITIN 4OZ/NYSTATIN 15 GRAM MIXTURE PASTE TOP SCH ×2 (09:00→22:33)
[2021-09-01] MEDS: MORPHINE 2 MG/1 ML SYRINGE IV PRN ×2 (11:34→17:56)
[2021-09-02] MEDS: methylPREDNISolone SOD SUC 40 MG/1 ML VIAL IV SCH ×3 (04:54→18:30)
[2021-09-02] MEDS: LIDOCAINE 5% PATCH TRANSDERM SCH (08:58)
[2021-09-02] MEDS: DESITIN 4OZ/NYSTATIN 15 GRAM MIXTURE PASTE TOP SCH ×2 (10:11→22:13)
[2021-09-02] MEDS: METOPROLOL TARTRATE 25 MG TABLET PO SCH (11:28)
[2021-09-02] MEDS: ASPIRIN EC 81 MG TABLET PO SCH (11:28)
[2021-09-02] MEDS: DOCUSATE SODIUM 100 MG CAPSULE PO SCH ×2 (11:28→22:13)
[2021-09-02] MEDS: ACETAMINOPHEN 325 MG TABLET PO SCH ×3 (11:28→22:13)
[2021-09-02] MEDS: MORPHINE 2 MG/1 ML SYRINGE IV PRN ×3 (12:11→20:30)
[2021-09-02] MEDS: ONDANSETRON 4 MG/2 ML VIAL IV PRN (12:50)
[2021-09-02 22:32] VITALS: BP 69/41
== END 2021-09-02 22:54 | disposition expired ==
LOC: N.ED 11:05 → N.EDINP 13:39 → N.TELES 18:30
PROVIDERS: ADMIT Internal Medicine; ATTEND Internal Medicine